=== PATIENT | male | born 1950 | race Caucasian/White ===

== ENCOUNTER → 2019-03-15 09:50 | Outpatient (CLI) | payer MEDICARE, SELFPAY ==
--- NOTE | 2019-03-15 10:03 | RAD_ITS ---
STUDY: X-RAY - LEFT HAND REASON FOR EXAM: Male, 68 years old. Pain. TECHNIQUE: 3 view(s) of the hand. COMPARISON: None. FINDINGS: Normal radiocarpal articulation. Normal distal radioulnar joint. Normal visualized carpal bones. Normal carpal articulations Normal carpometacarpal articulation of the thumb. Normal second through fifth carpometacarpal joints. Normal metacarpi. Normal metacarpophalangeal joint of the thumb. Normal interphalangeal joint of the thumb. Normal proximal and distal phalanges of the thumb. Normal metacarpophalangeal joints of the second through fifth fingers. There is diffuse articular joint space narrowing of the proximal and distal interphalangeal joints of the second through fifth fingers, but without erosive changes or periarticular soft tissue swelling. Normal phalanges of the second through fifth fingers. The soft tissue structures are unremarkable. RAD/Hand Min 3 Views IMPRESSION: Mild degenerative changes of the distal and proximal interphalangeal joints. Electronically Signed: Donald Madsen, at 10:10 EDT , Service support ,
--- NOTE | 2019-03-15 10:03 | RAD_ITS ---
STUDY: X-RAY - RIGHT HAND REASON FOR EXAM: Male, 68 years old. Right hand pain with history of arthritis. TECHNIQUE: 3 view(s) of the hand. COMPARISON: None. FINDINGS: Mild narrowing of the radiocarpal joint. Normal distal radioulnar joint. Normal visualized carpal bones. Widening of the scapholunate joint. Mild degenerative changes of the first carpometacarpal joint. Normal second through fifth carpometacarpal joints. Normal metacarpi. There is degenerative arthrosis of the metacarpophalangeal (MCP) joints. There is degenerative arthrosis of the interphalangeal joint of the thumb with articular joint space narrowing. Normal proximal and distal phalanges of the thumb. There is degenerative arthrosis of the metacarpophalangeal (MCP) joints. There is diffuse articular joint space narrowing of the proximal and distal interphalangeal joints of the second through fifth fingers, but without erosive changes or periarticular soft tissue swelling. Normal phalanges of the second through fifth fingers. Soft tissue swelling is more obvious in the second and third fingers RAD/Hand Min 3 Views IMPRESSION: Mild degenerative changes of the radiocarpal joint and an increased distance between the scaphoid and the lunate consistent with prior scapholunate ligament injury. Mild bony degenerative changes of the first carpometacarpal joint. Mild to moderate degenerative narrowing of the first through the fifth metacarpal phalangeal joints. Mild to moderate diffuse degenerative narrowing of the interphalangeal joints. Radiographically, soft tissue swelling is more obviously associated with the proximal interphalangeal joints of the second and third fingers. Electronically Signed: Jordyn Denny MD at 23:56 EDT , Service support ,
--- NOTE | 2019-03-15 10:14 | RAD_ITS ---
STUDY: X-RAY - PELVIS REASON FOR EXAM: Male, 68 years old. Pain. Arthritis. TECHNIQUE: One view of the pelvis was obtained. COMPARISON: None. FINDINGS: There is a non-specific bowel gas pattern. Normal visualized soft tissue structures. Normal bilateral iliac wings, sacroiliac joints and visualized sacrum. Normal visualized bilateral superior and inferior pubic rami. Normal pubic symphysis. Normal ischial tuberosities. Normal visualized right femoral head. Normal right acetabulum. Normal right hip joint. Normal visualized left femoral head. Normal left acetabulum. Normal left hip joint. RAD/Pelvis 1 or 2 Views IMPRESSION: Normal x-ray examination of the pelvis. Electronically Signed: Solomon Arauz MD at 22:46 EDT , Service support ,
[2019-03-15 13:05] LABS: Erythrocyte Sedimentation Rate 3 mm/hr (0-20)
[2019-03-15 13:14] LABS: Absolute Lymphocyte Count 0.54 X10^3/ul (0.83-4.51); Absolute Neutrophil Count 5.7 X10^3/uL (2.0-7.7); Basophil# 0.02 X10^3/uL; Basophil% 0.3 % (0-1); Eosinophil# 0.05 X10^3/uL; Eosinophils% 0.7 % (0-5); Hematocrit 46.5 % (40-54); Hemoglobin 15.2 g/dl (13.0-16.5); Lymphocyte # 0.54 X10^3/ul (4.0); Mean Corp Hgb Conc 32.7 g/gl (32-36); Mean Corpuscular Hgb 30.9 pg (27.0-32.0); Mean Corpuscular Volume 94.5 fL (80-94); Mean Platelet Vol. 10.6 fl (6.2-12.0); Monocyte# 0.44 X10^3/uL; Monocyte% 6.5 % (0-10); Neutrophil # 5.71 X10^3/uL (2.7-7.7); Neutrophil % 84.2 % (47-70); Platelet Count 220 K/mm3 (150-450); RBC Distribution Width CV 13.4 % (11.6-14.6); RBC Distribution Width SD 46.2 fl (35.1-43.9); Red Blood Count 4.92 M/mm3 (4.6-6.2); White Blood Count 6.8 K/mm3 (4.4-11.0)
[2019-03-15 13:21] LABS: Differential Indicated SCAN CRITERIA MET; POSITIVE COUNT NO; POSITIVE DIFFERENTIAL YES; POSITIVE MORPHOLOGY NO
[2019-03-15 14:09] LABS: ALB/GLOB Ratio 1.1 RATIO (0.9-2.4); AST(SGOT) 19 U/L (15-37); Alanine Aminotransfer ALT/SGPT 28 U/L (16-61); Albumin, Serum 3.9 g/dL (3.2-5.0); Alkaline Phosphatase 80 U/L (45-117); Anion Gap 5 (5-15); BUN 17 mg/dL (7-18); BUN/Creat Ratio 21.5 RATIO (10-20); CRP < 2.90 mg/L (0.0-3.0); Calcium,Total 9.3 mg/dL (8.5-10.1); Chloride 106 mmol/L (98-107); Creatinine, Serum 0.79 mg/dL (0.70-1.30); EST Glomerular Filtration Rate 104 mL/min (>60); Est Glom Filt Rate - Afr Amer 126 mL/min (>60); Globulin 3.6 g/dL (2.2-4.2); Glucose 101 mg/dL (74-106); Potassium 4.2 mmol/L (3.5-5.1); Protein, Total 7.5 g/dL (6.4-8.2); Rheumatoid Factor < 10.0 IU/mL (<15); Sodium Level 141 mmol/L (136-145)
[2019-03-16 12:07] LABS: SJOGREN'S Anti-SS-A test 1.8 AI (0.0-0.9); SJOGREN'S Anti-SS-B test < 0.2 AI (0.0-0.9)
[2019-03-18 13:43] LABS: ANTINUCLEAR ANTIBODIES DIRECT Positive (Negative)
[2019-03-20 14:07] LABS: HEPATITIS B SURFACE AG Negative (Negative)
[2019-03-21 11:32] LABS: CCP IgG Antibodies 7 units (0-19); HLA B27 Positive (.); Hep B Surface Antibodies Non Reactive (.); Hep C Antibodies <0.1 s/co ratio (0.0-0.9); Hepatitis B Core AB IgM Negative (Negative)
== END ==
PROVIDERS: Referring Provider Internal Medicine Rheumatology; Visit Provider Internal Medicine Rheumatology
DX: M06.4 Inflammatory polyarthropathy (principal); M47.897 Other spondylosis, lumbosacral region; E03.9 Hypothyroidism, unspecified
CPT/HCPCS: 36415; 72170; 73130; 80053; 81374; 85025; 85652; 86038; 86140; 86200; 86235; 86431; 86705; 86706; 86803; 87340

== ENCOUNTER → 2019-06-01 11:41 | Outpatient (CLI) | payer MEDICARE, SELFPAY ==
[2019-06-01 14:21] LABS: Absolute Neutrophil Count 5.1 X10^3/uL (2.0-7.7); Basophil# 0.03 X10^3/uL; Basophil% 0.5 % (0-1); Eosinophil# 0.02 X10^3/uL; Eosinophils% 0.3 % (0-5); Hematocrit 44.1 % (40-54); Lymphocyte % 9.6 % (19-41); Mean Corp Hgb Conc 31.7 g/dL (32-36); Mean Corpuscular Hgb 30.4 pg (27.0-32.0); Mean Corpuscular Volume 95.7 fL (80-94); Mean Platelet Vol. 10.9 fl (6.2-12.0); Monocyte# 0.43 X10^3/uL; Monocyte% 6.9 % (0-10); NRBC Flagged by Analyzer 0 % (0-5); Neutrophil % 82.1 % (47-70); POSITIVE DIFFERENTIAL YES; Platelet Count 198 K/mm3 (150-450); RBC Distribution Width CV 14.4 % (11.6-14.6); RBC Distribution Width SD 49.6 fl (35.1-43.9); Red Blood Count 4.61 M/mm3 (4.6-6.2); White Blood Count 6.2 K/mm3 (4.4-11.0)
[2019-06-01 14:25] LABS: Differential Indicated SCAN CRITERIA MET
[2019-06-01 14:39] LABS: AST(SGOT) 22 U/L (15-37); Alanine Aminotransfer ALT/SGPT 32 U/L (16-61); Albumin, Serum 3.5 g/dL (3.2-5.0); Alkaline Phosphatase 73 U/L (45-117); Anion Gap 4 (5-15); BUN 14 mg/dL (7-18); BUN/Creat Ratio 17.8 RATIO (10-20); Calcium,Total 9.1 mg/dL (8.5-10.1); Chloride 108 mmol/L (98-107); Creatinine, Serum 0.79 mg/dL (0.70-1.30); EST Glomerular Filtration Rate 105 mL/min (>60); Est Glom Filt Rate - Afr Amer 127 mL/min (>60); Globulin 3.4 g/dL (2.2-4.2); Glucose 86 mg/dL (74-106); Potassium 4.2 mmol/L (3.5-5.1); Protein, Total 6.9 g/dL (6.4-8.2); Sodium Level 144 mmol/L (136-145)
== END ==
PROVIDERS: Referring Provider Internal Medicine Rheumatology; Visit Provider Internal Medicine Rheumatology
DX: M06.4 Inflammatory polyarthropathy (principal); M47.897 Other spondylosis, lumbosacral region; E03.9 Hypothyroidism, unspecified
CPT/HCPCS: 36415; 80053; 85025

== ENCOUNTER → 2020-02-29 11:54 | Outpatient (CLI) | payer MEDICARE, SELFPAY ==
[2020-02-29 15:21] LABS: Absolute Lymphocyte Count 0.88 X10^3/uL (0.83-4.51); Absolute Neutrophil Count 3.5 X10^3/uL (2.0-7.7); Basophil# 0.02 X10^3/uL; Basophil% 0.4 % (0-1); Eosinophil# 0.15 X10^3/uL; Hematocrit 44.1 % (40-54); Hemoglobin 13.9 g/dL (13.0-16.5); Lymphocyte # 0.88 X10^3/ul (4.0); Lymphocyte % 17.4 % (19-41); Mean Corp Hgb Conc 31.5 g/dL (32-36); Mean Corpuscular Hgb 30.5 pg (27.0-32.0); Mean Corpuscular Volume 96.9 fL (80-94); Mean Platelet Vol. 10.6 fl (6.2-12.0); Monocyte# 0.47 X10^3/uL; Monocyte% 9.3 % (0-10); NRBC Flagged by Analyzer 0 % (0-5); Neutrophil # 3.51 X10^3/uL (2.7-7.7); Neutrophil % 69.3 % (47-70); Platelet Count 215 K/mm3 (150-450); RBC Distribution Width CV 13.5 % (11.6-14.6); Red Blood Count 4.55 M/mm3 (4.6-6.2); White Blood Count 5.1 K/mm3 (4.4-11.0)
[2020-02-29 15:50] LABS: AST(SGOT) 20 U/L (15-37); Alanine Aminotransfer ALT/SGPT 30 U/L (16-61); Albumin, Serum 3.6 g/dL (3.2-5.0); Alkaline Phosphatase 101 U/L (45-117); Anion Gap 4 (5-15); BUN 18 mg/dL (7-18); BUN/Creat Ratio 24.1 RATIO (10-20); Calcium,Total 9.3 mg/dL (8.5-10.1); Chloride 106 mmol/L (98-107); Creatinine, Serum 0.75 mg/dL (0.70-1.30); EST Glomerular Filtration Rate 111 mL/min (>60); Est Glom Filt Rate - Afr Amer 134 mL/min (>60); Globulin 3.5 g/dL (2.2-4.2); Glucose 88 mg/dL (74-106); Potassium 4.5 mmol/L (3.5-5.1); Protein, Total 7.1 g/dL (6.4-8.2); Sodium Level 141 mmol/L (136-145)
== END ==
PROVIDERS: Referring Provider Internal Medicine Rheumatology; Visit Provider Internal Medicine Rheumatology
DX: M06.4 Inflammatory polyarthropathy (principal); M35.00 Sjogren syndrome, unspecified; M47.897 Other spondylosis, lumbosacral region; E03.9 Hypothyroidism, unspecified; Z79.899 Other long term (current) drug therapy
CPT/HCPCS: 36415; 80053; 85025

== ENCOUNTER → 2020-06-03 08:25 | Outpatient (CLI) | payer MEDICARE, SELFPAY ==
[2020-06-03 10:30] LABS: Absolute Lymphocyte Count 0.71 X10^3/uL (0.83-4.51); Absolute Neutrophil Count 3.7 X10^3/uL (2.0-7.7); Basophil# 0.03 X10^3/uL; Basophil% 0.6 % (0-1); Hematocrit 41.1 % (40-54); Hemoglobin 13.9 g/dL (13.0-16.5); Lymphocyte # 0.71 X10^3/ul (4.0); Lymphocyte % 13.9 % (19-41); Mean Corp Hgb Conc 33.8 g/dL (32-36); Mean Corpuscular Hgb 33.6 pg (27.0-32.0); Mean Corpuscular Volume 99.3 fL (80-94); Mean Platelet Vol. 10.5 fl (6.2-12.0); Monocyte% 9.8 % (0-10); NRBC Flagged by Analyzer 0 % (0-5); Neutrophil # 3.71 X10^3/uL (2.7-7.7); Neutrophil % 72.9 % (47-70); Platelet Count 173 K/mm3 (150-450); RBC Distribution Width CV 14.6 % (11.6-14.6); RBC Distribution Width SD 52.3 fl (35.1-43.9); Red Blood Count 4.14 M/mm3 (4.6-6.2); White Blood Count 5.1 K/mm3 (4.4-11.0)
[2020-06-03 10:53] LABS: AST(SGOT) 19 U/L (15-37); Alanine Aminotransfer ALT/SGPT 28 U/L (16-61); Albumin, Serum 3.6 g/dL (3.2-5.0); Alkaline Phosphatase 70 U/L (45-117); Anion Gap 3 (5-15); BUN 18 mg/dL (7-18); BUN/Creat Ratio 25.4 RATIO (10-20); Calcium,Total 9.3 mg/dL (8.5-10.1); Chloride 107 mmol/L (98-107); Creatinine, Serum 0.71 mg/dL (0.70-1.30); EST Glomerular Filtration Rate 117 mL/min (>60); Est Glom Filt Rate - Afr Amer 142 mL/min (>60); Globulin 3.5 g/dL (2.2-4.2); Glucose 101 mg/dL (74-106); Potassium 4.2 mmol/L (3.5-5.1); Protein, Total 7.1 g/dL (6.4-8.2); Sodium Level 142 mmol/L (136-145)
== END ==
PROVIDERS: Referring Provider Internal Medicine Rheumatology; Visit Provider Internal Medicine Rheumatology
DX: M06.4 Inflammatory polyarthropathy (principal); M35.00 Sjogren syndrome, unspecified; M47.897 Other spondylosis, lumbosacral region; E03.9 Hypothyroidism, unspecified; Z79.899 Other long term (current) drug therapy
CPT/HCPCS: 36415; 80053; 85025

== ENCOUNTER → 2020-06-11 08:19 | Outpatient (CLI) | payer MEDICARE, SELFPAY ==
[2020-06-11 10:28] LABS: Vitamin D,25 Hydroxy 63.3 ng/mL
[2020-06-11 10:39] LABS: Thyroid Stim Hormone (TSH) 0.54 uIU/mL (0.358-3.74)
== END ==
PROVIDERS: Referring Provider Internal Medicine Endocrinology, Diabetes & Metabolism; Visit Provider Internal Medicine Endocrinology, Diabetes & Metabolism
DX: E03.8 Other specified hypothyroidism (principal); E55.9 Vitamin D deficiency, unspecified
CPT/HCPCS: 36415; 82306; 84443

== ENCOUNTER → 2020-08-20 08:01 | Outpatient (CLI) | payer MEDICARE, SELFPAY ==
[2020-08-20 10:13] LABS: Absolute Lymphocyte Count 1.01 X10^3/uL (0.83-4.51); Absolute Neutrophil Count 3.3 X10^3/uL (2.0-7.7); Basophil# 0.03 X10^3/uL; Basophil% 0.6 % (0-1); Eosinophil# 0.16 X10^3/uL; Eosinophils% 3.1 % (0-5); Hematocrit 45.5 % (40-54); Hemoglobin 14.6 g/dL (13.0-16.5); Lymphocyte # 1.01 X10^3/ul (4.0); Lymphocyte % 19.7 % (19-41); Mean Corp Hgb Conc 32.1 g/dL (32-36); Mean Corpuscular Hgb 31.4 pg (27.0-32.0); Mean Corpuscular Volume 97.8 fL (80-94); Mean Platelet Vol. 10.5 fl (6.2-12.0); Monocyte# 0.55 X10^3/uL; Monocyte% 10.7 % (0-10); NRBC Flagged by Analyzer 0 % (0-5); Neutrophil # 3.33 X10^3/uL (2.7-7.7); Neutrophil % 64.9 % (47-70); Platelet Count 211 K/mm3 (150-450); RBC Distribution Width CV 13.3 % (11.6-14.6); RBC Distribution Width SD 47.4 fl (35.1-43.9); Red Blood Count 4.65 M/mm3 (4.6-6.2); White Blood Count 5.1 K/mm3 (4.4-11.0)
[2020-08-20 10:38] LABS: AST(SGOT) 35 U/L (15-37); Alanine Aminotransfer ALT/SGPT 50 U/L (16-61); Albumin, Serum 3.6 g/dL (3.2-5.0); Alkaline Phosphatase 92 U/L (45-117); Anion Gap 4 (5-15); BUN 16 mg/dL (7-18); BUN/Creat Ratio 24.1 RATIO (10-20); Chloride 105 mmol/L (98-107); Creatinine, Serum 0.66 mg/dL (0.70-1.30); EST Glomerular Filtration Rate 127 mL/min (>60); Est Glom Filt Rate - Afr Amer 153 mL/min (>60); Globulin 3.6 g/dL (2.2-4.2); Glucose 91 mg/dL (74-106); Protein, Total 7.2 g/dL (6.4-8.2); Sodium Level 141 mmol/L (136-145)
== END ==
PROVIDERS: Referring Provider Internal Medicine Rheumatology; Visit Provider Internal Medicine Rheumatology
DX: M06.4 Inflammatory polyarthropathy (principal); M35.00 Sjogren syndrome, unspecified; M47.897 Other spondylosis, lumbosacral region; E03.9 Hypothyroidism, unspecified; Z79.899 Other long term (current) drug therapy
CPT/HCPCS: 36415; 80053; 85025

== ENCOUNTER → 2020-11-18 15:54 | Outpatient (CLI) | payer MEDICARE, SELFPAY ==
[2020-11-18 18:13] LABS: Absolute Lymphocyte Count 1.05 X10^3/uL (0.83-4.51); Absolute Neutrophil Count 3.2 X10^3/uL (2.0-7.7); Basophil# 0.02 X10^3/uL; Basophil% 0.4 % (0-1); Eosinophil# 0.13 X10^3/uL; Eosinophils% 2.7 % (0-5); Hematocrit 44.3 % (40-54); Hemoglobin 14.1 g/dL (13.0-16.5); Lymphocyte # 1.05 X10^3/ul (4.0); Lymphocyte % 21.9 % (19-41); Mean Corp Hgb Conc 31.8 g/dL (32-36); Mean Corpuscular Hgb 30.3 pg (27.0-32.0); Mean Corpuscular Volume 95.3 fL (80-94); Mean Platelet Vol. 10.2 fl (6.2-12.0); Monocyte% 8.3 % (0-10); NRBC Flagged by Analyzer 0 % (0-5); Neutrophil # 3.17 X10^3/uL (2.7-7.7); Neutrophil % 66.1 % (47-70); Platelet Count 230 K/mm3 (150-450); RBC Distribution Width CV 13.7 % (11.6-14.6); RBC Distribution Width SD 47.6 fl (35.1-43.9); Red Blood Count 4.65 M/mm3 (4.6-6.2); White Blood Count 4.8 K/mm3 (4.4-11.0)
[2020-11-18 18:24] LABS: AST(SGOT) 24 U/L (15-37); Alanine Aminotransfer ALT/SGPT 38 U/L (16-61); Albumin, Serum 3.6 g/dL (3.2-5.0); Alkaline Phosphatase 83 U/L (45-117); Anion Gap 4 (5-15); BUN 22 mg/dL (7-18); BUN/Creat Ratio 27.1 RATIO (10-20); Calcium,Total 9.1 mg/dL (8.5-10.1); Chloride 106 mmol/L (98-107); Creatinine, Serum 0.81 mg/dL (0.70-1.30); EST Glomerular Filtration Rate 101 mL/min (>60); Est Glom Filt Rate - Afr Amer 122 mL/min (>60); Globulin 3.5 g/dL (2.2-4.2); Glucose 73 mg/dL (74-106); Potassium 3.8 mmol/L (3.5-5.1); Protein, Total 7.1 g/dL (6.4-8.2); Sodium Level 142 mmol/L (136-145)
[2020-11-18 18:33] LABS: PSA,Total - Annual Screen 0.28 ng/mL (0.00-4.00)
== END ==
PROVIDERS: Internal Medicine Rheumatology
DX: C61 Malignant neoplasm of prostate (principal); M06.4 Inflammatory polyarthropathy; M35.00 Sjogren syndrome, unspecified; M47.897 Other spondylosis, lumbosacral region; E03.9 Hypothyroidism, unspecified; Z79.899 Other long term (current) drug therapy
CPT/HCPCS: 36415; 80053; 84153; 85025; G0103

== ENCOUNTER → 2020-12-08 11:54 | Outpatient (CLI) | payer MEDICARE, SELFPAY ==
[2020-12-12 16:28] LABS: G6PD Quant Test 315 (127-427)
== END ==
PROVIDERS: Referring Provider Internal Medicine Rheumatology; Visit Provider Internal Medicine Rheumatology
DX: M06.4 Inflammatory polyarthropathy (principal); M35.00 Sjogren syndrome, unspecified; M47.897 Other spondylosis, lumbosacral region; E03.9 Hypothyroidism, unspecified; Z79.899 Other long term (current) drug therapy; Z85.46 Personal history of malignant neoplasm of prostate
CPT/HCPCS: 36415; 82955

== ENCOUNTER → 2020-12-30 11:44 | Outpatient (CLI) | payer MEDICARE, SELFPAY ==
[2020-12-30 15:30] LABS: ALB/GLOB Ratio 1.1 RATIO (0.9-2.4); AST(SGOT) 29 U/L (15-37); Alanine Aminotransfer ALT/SGPT 45 U/L (16-61); Albumin, Serum 3.7 g/dL (3.2-5.0); Alkaline Phosphatase 86 U/L (45-117); Anion Gap 5 (5-15); BUN 19 mg/dL (7-18); BUN/Creat Ratio 24.9 RATIO (10-20); Calcium,Total 9.3 mg/dL (8.5-10.1); Chloride 104 mmol/L (98-107); Creatinine, Serum 0.76 mg/dL (0.70-1.30); EST Glomerular Filtration Rate 108 mL/min (>60); Est Glom Filt Rate - Afr Amer 131 mL/min (>60); Globulin 3.5 g/dL (2.2-4.2); Glucose 88 mg/dL (74-106); Protein, Total 7.2 g/dL (6.4-8.2); Sodium Level 140 mmol/L (136-145); Thyroid Stim Hormone (TSH) 1.11 uIU/mL (0.358-3.74)
== END ==
PROVIDERS: Referring Provider Internal Medicine Endocrinology, Diabetes & Metabolism; Visit Provider Internal Medicine Endocrinology, Diabetes & Metabolism
DX: E03.8 Other specified hypothyroidism (principal)
CPT/HCPCS: 36415; 80053; 84443

== ENCOUNTER → 2021-03-11 12:50 | Outpatient (CLI) | payer MEDICARE, SELFPAY ==
[2021-03-11 14:55] LABS: Absolute Lymphocyte Count 0.77 X10^3/uL (0.83-4.51); Absolute Neutrophil Count 3.5 X10^3/uL (2.0-7.7); Basophil# 0.03 X10^3/uL; Basophil% 0.6 % (0-1); Eosinophils% 2.1 % (0-5); Hematocrit 41.9 % (40-54); Hemoglobin 13.5 g/dL (13.0-16.5); Lymphocyte # 0.77 X10^3/ul (0.83-4.51); Mean Corp Hgb Conc 32.2 g/dL (32-36); Mean Corpuscular Volume 96.1 fL (80-94); Mean Platelet Vol. 10.3 fl (6.2-12.0); Monocyte# 0.43 X10^3/uL; Monocyte% 8.9 % (0-10); NRBC Flagged by Analyzer 0 % (0-5); Neutrophil # 3.47 X10^3/uL (2.7-7.7); Platelet Count 204 K/mm3 (150-450); RBC Distribution Width CV 13.8 % (11.6-14.6); RBC Distribution Width SD 48.5 fl (35.1-43.9); Red Blood Count 4.36 M/mm3 (4.6-6.2); White Blood Count 4.8 K/mm3 (4.4-11.0)
[2021-03-11 15:37] LABS: ALB/GLOB Ratio 1.1 RATIO (0.9-2.4); AST(SGOT) 26 U/L (15-37); Alanine Aminotransfer ALT/SGPT 40 U/L (16-61); Albumin, Serum 3.8 g/dL (3.2-5.0); Alkaline Phosphatase 81 U/L (45-117); Anion Gap 5 (5-15); BUN 16 mg/dL (7-18); BUN/Creat Ratio 23.8 RATIO (10-20); Calcium,Total 9.3 mg/dL (8.5-10.1); Chloride 104 mmol/L (98-107); Creatinine, Serum 0.67 mg/dL (0.70-1.30); EST Glomerular Filtration Rate 125 mL/min (>60); Est Glom Filt Rate - Afr Amer 151 mL/min (>60); Globulin 3.4 g/dL (2.2-4.2); Glucose 87 mg/dL (74-106); Potassium 4.2 mmol/L (3.5-5.1); Protein, Total 7.2 g/dL (6.4-8.2); Sodium Level 140 mmol/L (136-145)
== END ==
PROVIDERS: Referring Provider Internal Medicine Rheumatology; Visit Provider Internal Medicine Rheumatology
DX: M06.4 Inflammatory polyarthropathy (principal); M35.00 Sjogren syndrome, unspecified; M47.897 Other spondylosis, lumbosacral region; E03.9 Hypothyroidism, unspecified; Z85.46 Personal history of malignant neoplasm of prostate; Z79.899 Other long term (current) drug therapy
CPT/HCPCS: 36415; 80053; 85025

== ENCOUNTER → 2021-05-20 13:15 | Outpatient (CLI) | payer MEDICARE, SELFPAY ==
[2021-05-20 15:17] LABS: Absolute Lymphocyte Count 0.88 X10^3/uL (0.83-4.51); Absolute Neutrophil Count 4.6 X10^3/uL (2.0-7.7); Basophil# 0.02 X10^3/uL; Basophil% 0.3 % (0-1); Eosinophil# 0.11 X10^3/uL; Eosinophils% 1.8 % (0-5); Hematocrit 43.5 % (40-54); Hemoglobin 14.2 g/dL (13.0-16.5); Lymphocyte # 0.88 X10^3/ul (0.83-4.51); Lymphocyte % 14.2 % (19-41); Mean Corp Hgb Conc 32.6 g/dL (32-36); Mean Corpuscular Hgb 31.7 pg (27.0-32.0); Mean Corpuscular Volume 97.1 fL (80-94); Mean Platelet Vol. 10.6 fl (6.2-12.0); Monocyte# 0.51 X10^3/uL; Monocyte% 8.3 % (0-10); NRBC Flagged by Analyzer 0 % (0-5); Neutrophil # 4.62 X10^3/uL (2.7-7.7); Neutrophil % 74.8 % (47-70); Platelet Count 217 K/mm3 (150-450); RBC Distribution Width CV 13.6 % (11.6-14.6); RBC Distribution Width SD 48.3 fl (35.1-43.9); Red Blood Count 4.48 M/mm3 (4.6-6.2); White Blood Count 6.2 K/mm3 (4.4-11.0)
[2021-05-20 15:46] LABS: ALB/GLOB Ratio 1.1 RATIO (0.9-2.4); AST(SGOT) 26 U/L (15-37); Alanine Aminotransfer ALT/SGPT 41 U/L (16-61); Albumin, Serum 3.7 g/dL (3.2-5.0); Alkaline Phosphatase 86 U/L (45-117); Anion Gap 5 (5-15); BUN 17 mg/dL (7-18); BUN/Creat Ratio 22.2 RATIO (10-20); Calcium,Total 9.1 mg/dL (8.5-10.1); Chloride 107 mmol/L (98-107); Creatinine, Serum 0.77 mg/dL (0.70-1.30); EST Glomerular Filtration Rate 107 mL/min (>60); Est Glom Filt Rate - Afr Amer 130 mL/min (>60); Globulin 3.4 g/dL (2.2-4.2); Glucose 97 mg/dL (74-106); Potassium 4.1 mmol/L (3.5-5.1); Protein, Total 7.1 g/dL (6.4-8.2); Sodium Level 141 mmol/L (136-145)
== END ==
PROVIDERS: Referring Provider Internal Medicine Rheumatology; Visit Provider Internal Medicine Rheumatology
DX: M06.4 Inflammatory polyarthropathy (principal); M35.00 Sjogren syndrome, unspecified; M47.897 Other spondylosis, lumbosacral region; E03.9 Hypothyroidism, unspecified; Z85.46 Personal history of malignant neoplasm of prostate; Z79.899 Other long term (current) drug therapy
CPT/HCPCS: 36415; 80053; 85025

== ENCOUNTER → 2021-06-30 09:08 | Outpatient (CLI) | payer MEDICARE, SELFPAY ==
[2021-06-30 11:04] LABS: Vitamin D,25 Hydroxy 55.2 ng/mL
[2021-06-30 11:32] LABS: ALB/GLOB Ratio 0.9 RATIO (0.9-2.4); AST(SGOT) 20 U/L (15-37); Alanine Aminotransfer ALT/SGPT 29 U/L (16-61); Albumin, Serum 3.6 g/dL (3.2-5.0); Alkaline Phosphatase 78 U/L (45-117); Anion Gap 5 (5-15); BUN 22 mg/dL (7-18); BUN/Creat Ratio 29.5 RATIO (10-20); Calcium,Total 9.4 mg/dL (8.5-10.1); Chloride 107 mmol/L (98-107); Creatinine, Serum 0.75 mg/dL (0.70-1.30); EST Glomerular Filtration Rate 111 mL/min (>60); Est Glom Filt Rate - Afr Amer 134 mL/min (>60); Globulin 3.8 g/dL (2.2-4.2); Glucose 90 mg/dL (74-106); Potassium 4.5 mmol/L (3.5-5.1); Protein, Total 7.4 g/dL (6.4-8.2); Sodium Level 141 mmol/L (136-145); Thyroid Stim Hormone (TSH) 0.78 uIU/mL (0.358-3.74)
== END ==
PROVIDERS: Referring Provider Internal Medicine Endocrinology, Diabetes & Metabolism; Visit Provider Internal Medicine Endocrinology, Diabetes & Metabolism
DX: E03.8 Other specified hypothyroidism (principal); E55.9 Vitamin D deficiency, unspecified
CPT/HCPCS: 36415; 80053; 82306; 84443

== ENCOUNTER → 2021-08-03 12:17 | Outpatient (CLI) | payer MEDICARE, SELFPAY ==
[2021-08-03 15:29] LABS: Absolute Lymphocyte Count 0.63 X10^3/uL (0.83-4.51); Basophil# 0.03 X10^3/uL; Basophil% 0.5 % (0-1); Eosinophil# 0.07 X10^3/uL; Eosinophils% 1.1 % (0-5); Hematocrit 42.9 % (40-54); Lymphocyte # 0.63 X10^3/ul (0.83-4.51); Lymphocyte % 10.1 % (19-41); Mean Corp Hgb Conc 32.6 g/dL (32-36); Mean Corpuscular Hgb 31.6 pg (27.0-32.0); Mean Corpuscular Volume 96.8 fL (80-94); Mean Platelet Vol. 10.6 fl (6.2-12.0); Monocyte# 0.44 X10^3/uL; Monocyte% 7.1 % (0-10); NRBC Flagged by Analyzer 0 % (0-5); Neutrophil # 5.01 X10^3/uL (2.7-7.7); Neutrophil % 80.7 % (47-70); Platelet Count 192 K/mm3 (150-450); RBC Distribution Width CV 14.2 % (11.6-14.6); RBC Distribution Width SD 50.7 fl (35.1-43.9); Red Blood Count 4.43 M/mm3 (4.6-6.2); White Blood Count 6.2 K/mm3 (4.4-11.0)
[2021-08-03 15:57] LABS: AST(SGOT) 22 U/L (15-37); Alanine Aminotransfer ALT/SGPT 29 U/L (16-61); Albumin, Serum 3.6 g/dL (3.2-5.0); Alkaline Phosphatase 86 U/L (45-117); Anion Gap 8 (5-15); BUN 17 mg/dL (7-18); Calcium,Total 9.3 mg/dL (8.5-10.1); Chloride 105 mmol/L (98-107); Creatinine, Serum 0.85 mg/dL (0.70-1.30); EST Glomerular Filtration Rate 95 mL/min (>60); Est Glom Filt Rate - Afr Amer 115 mL/min (>60); Globulin 3.6 g/dL (2.2-4.2); Glucose 100 mg/dL (74-106); Potassium 3.9 mmol/L (3.5-5.1); Protein, Total 7.2 g/dL (6.4-8.2); Sodium Level 141 mmol/L (136-145)
== END ==
PROVIDERS: Referring Provider Internal Medicine Rheumatology; Visit Provider Internal Medicine Rheumatology
DX: M06.4 Inflammatory polyarthropathy (principal); M35.00 Sjogren syndrome, unspecified; M47.897 Other spondylosis, lumbosacral region; E03.9 Hypothyroidism, unspecified; Z79.899 Other long term (current) drug therapy; Z85.46 Personal history of malignant neoplasm of prostate
CPT/HCPCS: 36415; 80053; 85025

== ENCOUNTER 2021-11-04 08:35 | Outpatient (CLI) | payer MEDICARE, SELFPAY ==
[2021-11-04 10:07] LABS: Absolute Lymphocyte Count 0.87 X10^3/uL (0.83-4.51); Absolute Neutrophil Count 3.1 X10^3/uL (2.0-7.7); Basophil# 0.03 X10^3/uL; Basophil% 0.7 % (0-1); Eosinophil# 0.09 X10^3/uL; Hematocrit 46.8 % (40-54); Hemoglobin 15.1 g/dL (13.0-16.5); Lymphocyte # 0.87 X10^3/ul (0.83-4.51); Lymphocyte % 19.1 % (19-41); Mean Corp Hgb Conc 32.3 g/dL (32-36); Mean Corpuscular Volume 96.1 fL (80-94); Mean Platelet Vol. 10.4 fl (6.2-12.0); Monocyte# 0.42 X10^3/uL; Monocyte% 9.2 % (0-10); NRBC Flagged by Analyzer 0 % (0-5); Neutrophil # 3.12 X10^3/uL (2.7-7.7); Neutrophil % 68.3 % (47-70); Platelet Count 186 K/mm3 (150-450); RBC Distribution Width CV 13.4 % (11.6-14.6); RBC Distribution Width SD 47.7 fl (35.1-43.9); Red Blood Count 4.87 M/mm3 (4.6-6.2); White Blood Count 4.6 K/mm3 (4.4-11.0)
[2021-11-04 10:42] LABS: ALB/GLOB Ratio 1.1 RATIO (0.9-2.4); AST(SGOT) 33 U/L (15-37); Alanine Aminotransfer ALT/SGPT 48 U/L (16-61); Albumin, Serum 3.7 g/dL (3.2-5.0); Alkaline Phosphatase 88 U/L (45-117); Anion Gap 5 (5-15); BUN 14 mg/dL (7-18); BUN/Creat Ratio 19.1 RATIO (10-20); Calcium,Total 9.1 mg/dL (8.5-10.1); Chloride 108 mmol/L (98-107); Creatinine, Serum 0.73 mg/dL (0.70-1.30); EST Glomerular Filtration Rate 113 mL/min (>60); Est Glom Filt Rate - Afr Amer 137 mL/min (>60); Globulin 3.5 g/dL (2.2-4.2); Glucose 79 mg/dL (74-106); PSA,Total- Diagnostic 0.36 ng/mL (0.0-4.0); Potassium 4.2 mmol/L (3.5-5.1); Protein, Total 7.2 g/dL (6.4-8.2); Sodium Level 141 mmol/L (136-145)
== END 2021-11-04 23:59 | disposition short-term general hospital (02) ==
LOC: MTLAB 08:39
PROVIDERS: Referring Provider Internal Medicine Rheumatology; Visit Provider Internal Medicine Rheumatology
DX: M06.4 Inflammatory polyarthropathy (principal); M35.00 Sjogren syndrome, unspecified; N32.0 Bladder-neck obstruction; N28.1 Cyst of kidney, acquired; M47.897 Other spondylosis, lumbosacral region; E03.9 Hypothyroidism, unspecified; Z79.899 Other long term (current) drug therapy; Z85.46 Personal history of malignant neoplasm of prostate; Z87.440 Personal history of urinary (tract) infections; Z87.438 Personal history of other diseases of male genital organs
CPT/HCPCS: 36415; 80053; 84153; 85025

== ENCOUNTER 2021-12-30 08:50 | Outpatient (CLI) | payer MEDICARE, SELFPAY ==
[2021-12-30 11:20] LABS: ALB/GLOB Ratio 1.1 RATIO (0.9-2.4); AST(SGOT) 24 U/L (15-37); Alanine Aminotransfer ALT/SGPT 37 U/L (16-61); Albumin, Serum 3.8 g/dL (3.2-5.0); Alkaline Phosphatase 82 U/L (45-117); Anion Gap 5 (5-15); BUN 19 mg/dL (7-18); BUN/Creat Ratio 23.7 RATIO (10-20); Calcium,Total 9.8 mg/dL (8.5-10.1); Chloride 104 mmol/L (98-107); EST Glomerular Filtration Rate 102 mL/min (>60); Est Glom Filt Rate - Afr Amer 123 mL/min (>60); Globulin 3.5 g/dL (2.2-4.2); Glucose 99 mg/dL (74-106); Potassium 4.4 mmol/L (3.5-5.1); Protein, Total 7.3 g/dL (6.4-8.2); Sodium Level 139 mmol/L (136-145)
[2022-01-01 15:46] LABS: Vitamin D 1,25-Dihydroxy 58.7 pg/mL (19.9-79.3)
== END 2021-12-30 23:59 | disposition home or self-care (01) ==
LOC: MTLAB 08:51
PROVIDERS: Referring Provider Internal Medicine Endocrinology, Diabetes & Metabolism; Visit Provider Internal Medicine Endocrinology, Diabetes & Metabolism
DX: E03.8 Other specified hypothyroidism (principal); E04.2 Nontoxic multinodular goiter; E55.9 Vitamin D deficiency, unspecified
CPT/HCPCS: 36415; 80053; 82652; 84443

== ENCOUNTER 2022-01-18 11:05 | Outpatient (CLI) | payer MEDICARE, SELFPAY ==
[2022-01-18 12:16] LABS: Absolute Lymphocyte Count 0.68 X10^3/uL (0.83-4.51); Absolute Neutrophil Count 4.8 X10^3/uL (2.0-7.7); Basophil# 0.02 X10^3/uL; Basophil% 0.3 % (0-1); Eosinophil# 0.08 X10^3/uL; Eosinophils% 1.3 % (0-5); Hemoglobin 14.6 g/dL (13.0-16.5); Lymphocyte # 0.68 X10^3/ul (0.83-4.51); Lymphocyte % 11.4 % (19-41); Mean Corp Hgb Conc 33.2 g/dL (32-36); Mean Corpuscular Hgb 31.9 pg (27.0-32.0); Mean Corpuscular Volume 96.3 fL (80-94); Mean Platelet Vol. 10.3 fl (6.2-12.0); Monocyte# 0.41 X10^3/uL; Monocyte% 6.9 % (0-10); NRBC Flagged by Analyzer 0 % (0-5); Neutrophil # 4.75 X10^3/uL (2.7-7.7); Neutrophil % 79.8 % (47-70); Platelet Count 183 K/mm3 (150-450); RBC Distribution Width CV 14.1 % (11.6-14.6); RBC Distribution Width SD 49.7 fl (35.1-43.9); Red Blood Count 4.57 M/mm3 (4.6-6.2)
[2022-01-18 12:55] LABS: ALB/GLOB Ratio 1.1 RATIO (0.9-2.4); AST(SGOT) 22 U/L (15-37); Alanine Aminotransfer ALT/SGPT 28 U/L (16-61); Albumin, Serum 3.8 g/dL (3.2-5.0); Alkaline Phosphatase 75 U/L (45-117); Anion Gap 4 (5-15); BUN 21 mg/dL (7-18); Calcium,Total 9.4 mg/dL (8.5-10.1); Chloride 105 mmol/L (98-107); Creatinine, Serum 0.75 mg/dL (0.70-1.30); EST Glomerular Filtration Rate 110 mL/min (>60); Est Glom Filt Rate - Afr Amer 133 mL/min (>60); Globulin 3.4 g/dL (2.2-4.2); Glucose 92 mg/dL (74-106); Potassium 3.9 mmol/L (3.5-5.1); Protein, Total 7.2 g/dL (6.4-8.2); Sodium Level 141 mmol/L (136-145)
== END 2022-01-18 23:59 | disposition home or self-care (01) ==
PROVIDERS: Referring Provider Internal Medicine Rheumatology; Visit Provider Internal Medicine Rheumatology
DX: M06.4 Inflammatory polyarthropathy (principal); M35.00 Sjogren syndrome, unspecified; M47.897 Other spondylosis, lumbosacral region; E03.9 Hypothyroidism, unspecified; Z79.899 Other long term (current) drug therapy; Z85.46 Personal history of malignant neoplasm of prostate
CPT/HCPCS: 36415; 80053; 85025

== ENCOUNTER → 2022-04-01 | Outpatient (CLI) | payer MEDICARE, SELFPAY ==
[2022-04-01 10:42] LABS: ALB/GLOB Ratio 0.8 RATIO (0.9-2.4); AST(SGOT) 21 U/L (15-37); Alanine Aminotransfer ALT/SGPT 23 U/L (16-61); Albumin, Serum 3.2 g/dL (3.2-5.0); Alkaline Phosphatase 87 U/L (45-117); Anion Gap 4 (5-15); BUN 18 mg/dL (7-18); Calcium,Total 9.6 mg/dL (8.5-10.1); Chloride 105 mmol/L (98-107); Cholesterol 196 mg/dL (200); Creatinine, Serum 0.67 mg/dL (0.70-1.30); EST Glomerular Filtration Rate 126 mL/min (>60); Est Glom Filt Rate - Afr Amer 152 mL/min (>60); Globulin 4.1 g/dL (2.2-4.2); Glucose 103 mg/dL (74-106); High Density Lipoprotein 34 mg/dL; Potassium 3.8 mmol/L (3.5-5.1); Protein, Total 7.3 g/dL (6.4-8.2); Sodium Level 137 mmol/L (136-145); Thyroid Stim Hormone (TSH) 0.29 uIU/mL (0.358-3.74); Triglycerides 117 mg/dL; Very Low Density Lipoprotein 23 mg/dL (5-40)
== END | disposition home or self-care (01) ==
PROVIDERS: Referring Provider Internal Medicine Endocrinology, Diabetes & Metabolism; Visit Provider Internal Medicine Endocrinology, Diabetes & Metabolism
DX: E03.8 Other specified hypothyroidism (principal); E78.2 Mixed hyperlipidemia; E04.2 Nontoxic multinodular goiter
CPT/HCPCS: 36415; 80053; 80061; 84443

== ENCOUNTER → 2022-04-20 | Outpatient (CLI) | payer MEDICARE, SELFPAY ==
[2022-04-20 12:17] LABS: Absolute Lymphocyte Count 0.55 X10^3/uL (0.83-4.51); Absolute Neutrophil Count 2.9 X10^3/uL (2.0-7.7); Basophil# 0.02 X10^3/uL; Basophil% 0.5 % (0-1); Eosinophil# 0.07 X10^3/uL; Eosinophils% 1.8 % (0-5); Hematocrit 42.4 % (40-54); Hemoglobin 13.1 g/dL (13.0-16.5); Lymphocyte # 0.55 X10^3/ul (0.83-4.51); Lymphocyte % 14.1 % (19-41); Mean Corp Hgb Conc 30.9 g/dL (32-36); Mean Corpuscular Volume 97.2 fL (80-94); Mean Platelet Vol. 10.9 fl (6.2-12.0); Monocyte# 0.38 X10^3/uL; Monocyte% 9.8 % (0-10); NRBC Flagged by Analyzer 0 % (0-5); Neutrophil # 2.86 X10^3/uL (2.7-7.7); Neutrophil % 73.5 % (47-70); POSITIVE DIFFERENTIAL YES; Platelet Count 188 K/mm3 (150-450); RBC Distribution Width CV 14.2 % (11.6-14.6); RBC Distribution Width SD 50.9 fl (35.1-43.9); Red Blood Count 4.36 M/mm3 (4.6-6.2); White Blood Count 3.9 K/mm3 (4.4-11.0)
[2022-04-20 13:09] LABS: AST(SGOT) 24 U/L (15-37); Alanine Aminotransfer ALT/SGPT 30 U/L (16-61); Albumin, Serum 3.6 g/dL (3.2-5.0); Alkaline Phosphatase 83 U/L (45-117); Anion Gap 7 (5-15); BUN 24 mg/dL (7-18); BUN/Creat Ratio 31.7 RATIO (10-20); Calcium,Total 9.9 mg/dL (8.5-10.1); Chloride 105 mmol/L (98-107); Creatinine, Serum 0.76 mg/dL (0.70-1.30); EST Glomerular Filtration Rate 108 mL/min (>60); Est Glom Filt Rate - Afr Amer 131 mL/min (>60); Globulin 3.6 g/dL (2.2-4.2); Glucose 84 mg/dL (74-106); Potassium 4.1 mmol/L (3.5-5.1); Protein, Total 7.2 g/dL (6.4-8.2); Sodium Level 139 mmol/L (136-145)
[2022-04-20 13:10] LABS: Differential Indicated SCAN CRITERIA MET
[2022-04-20 13:11] LABS: Differential Comment SCANNED
[2022-04-21 12:41] LABS: Pathologist Review Reviewed
== END | disposition home or self-care (01) ==
PROVIDERS: Referring Provider Internal Medicine Rheumatology; Visit Provider Internal Medicine Rheumatology
DX: M06.4 Inflammatory polyarthropathy (principal); M35.00 Sjogren syndrome, unspecified; M47.897 Other spondylosis, lumbosacral region; E03.9 Hypothyroidism, unspecified; Z85.46 Personal history of malignant neoplasm of prostate; Z79.899 Other long term (current) drug therapy
CPT/HCPCS: 36415; 80053; 85025

== ENCOUNTER → 2022-07-13 | Outpatient (CLI) | payer MEDICARE, SELFPAY ==
[2022-07-13 10:03] LABS: Absolute Neutrophil Count 4.9 X10^3/uL (2.0-7.7); Basophil# 0.03 X10^3/uL; Basophil% 0.5 % (0-1); Eosinophil# 0.07 X10^3/uL; Eosinophils% 1.1 % (0-5); Hematocrit 48.4 % (40-54); Hemoglobin 15.5 g/dL (13.0-16.5); Mean Corpuscular Hgb 30.4 pg (27.0-32.0); Mean Corpuscular Volume 94.9 fL (80-94); Mean Platelet Vol. 10.7 fl (6.2-12.0); Monocyte% 7.8 % (0-10); NRBC Flagged by Analyzer 0 % (0-5); Neutrophil # 4.88 X10^3/uL (2.7-7.7); Neutrophil % 75.5 % (47-70); Platelet Count 217 K/mm3 (150-450); RBC Distribution Width CV 15.5 % (11.6-14.6); RBC Distribution Width SD 53.8 fl (35.1-43.9); White Blood Count 6.5 K/mm3 (4.4-11.0)
[2022-07-13 11:23] LABS: AST(SGOT) 19 U/L (15-37); Alanine Aminotransfer ALT/SGPT 35 U/L (16-61); Albumin, Serum 3.8 g/dL (3.2-5.0); Alkaline Phosphatase 89 U/L (45-117); Anion Gap 5 (5-15); BUN 24 mg/dL (7-18); BUN/Creat Ratio 28.7 RATIO (10-20); Calcium,Total 9.9 mg/dL (8.5-10.1); Chloride 106 mmol/L (98-107); Creatinine, Serum 0.84 mg/dL (0.70-1.30); EST Glomerular Filtration Rate 97 mL/min (>60); Est Glom Filt Rate - Afr Amer 117 mL/min (>60); Glucose 99 mg/dL (74-106); Potassium 4.4 mmol/L (3.5-5.1); Protein, Total 7.8 g/dL (6.4-8.2); Sodium Level 140 mmol/L (136-145)
[2022-07-13 11:24] LABS: PSA,Total- Diagnostic 0.41 ng/mL (0.0-4.0)
== END | disposition home or self-care (01) ==
LOC: MTLAB 08:53
PROVIDERS: Referring Provider Internal Medicine Rheumatology; Visit Provider Internal Medicine Rheumatology
DX: M06.4 Inflammatory polyarthropathy (principal); M35.00 Sjogren syndrome, unspecified; M47.897 Other spondylosis, lumbosacral region; E03.9 Hypothyroidism, unspecified; Z79.899 Other long term (current) drug therapy; Z85.46 Personal history of malignant neoplasm of prostate
CPT/HCPCS: 36415; 80053; 84153; 85025

== ENCOUNTER → 2022-08-20 | Outpatient (CLI) | payer MEDICARE, SELFPAY ==
[2022-08-20 10:16] LABS: Vitamin D,25 Hydroxy 49.5 ng/mL
[2022-08-20 10:40] LABS: ALB/GLOB Ratio 0.9 RATIO (0.9-2.4); AST(SGOT) 26 U/L (15-37); Alanine Aminotransfer ALT/SGPT 30 U/L (16-61); Albumin, Serum 3.6 g/dL (3.2-5.0); Alkaline Phosphatase 82 U/L (45-117); Anion Gap 5 (5-15); BUN 20 mg/dL (7-18); BUN/Creat Ratio 28.1 RATIO (10-20); Calcium,Total 9.3 mg/dL (8.5-10.1); Chloride 103 mmol/L (98-107); Cholesterol 209 mg/dL (200); Creatinine, Serum 0.71 mg/dL (0.70-1.30); EST Glomerular Filtration Rate 116 mL/min (>60); Est Glom Filt Rate - Afr Amer 141 mL/min (>60); Globulin 3.8 g/dL (2.2-4.2); Glucose 90 mg/dL (74-106); High Density Lipoprotein 47 mg/dL; Potassium 3.9 mmol/L (3.5-5.1); Protein, Total 7.4 g/dL (6.4-8.2); Sodium Level 138 mmol/L (136-145); Thyroid Stim Hormone (TSH) 1.43 uIU/mL (0.358-3.74); Triglycerides 70 mg/dL; Very Low Density Lipoprotein 14 mg/dL (5-40)
== END | disposition home or self-care (01) ==
LOC: MTLAB 07:14
PROVIDERS: Referring Provider Internal Medicine Endocrinology, Diabetes & Metabolism; Visit Provider Internal Medicine Endocrinology, Diabetes & Metabolism
DX: E03.8 Other specified hypothyroidism (principal); E78.2 Mixed hyperlipidemia; E55.9 Vitamin D deficiency, unspecified
CPT/HCPCS: 36415; 80053; 80061; 82306; 84443

== ENCOUNTER → 2022-10-21 | Outpatient (CLI) | payer MEDICARE, SELFPAY ==
[2022-10-21 17:33] LABS: Absolute Lymphocyte Count 1.16 X10^3/uL (0.83-4.51); Basophil# 0.03 X10^3/uL; Basophil% 0.5 % (0-1); Eosinophil# 0.09 X10^3/uL; Eosinophils% 1.6 % (0-5); Hematocrit 45.2 % (40-54); Hemoglobin 14.6 g/dL (13.0-16.5); Lymphocyte # 1.16 X10^3/ul (0.83-4.51); Lymphocyte % 20.1 % (19-41); Mean Corp Hgb Conc 32.3 g/dL (32-36); Mean Corpuscular Hgb 31.1 pg (27.0-32.0); Mean Corpuscular Volume 96.4 fL (80-94); Mean Platelet Vol. 10.8 fl (6.2-12.0); Monocyte# 0.49 X10^3/uL; Monocyte% 8.5 % (0-10); NRBC Flagged by Analyzer 0 % (0-5); Neutrophil # 3.95 X10^3/uL (2.7-7.7); Neutrophil % 68.4 % (47-70); Platelet Count 187 K/mm3 (150-450); RBC Distribution Width CV 13.7 % (11.6-14.6); RBC Distribution Width SD 48.2 fl (35.1-43.9); Red Blood Count 4.69 M/mm3 (4.6-6.2); White Blood Count 5.8 K/mm3 (4.4-11.0)
[2022-10-21 17:59] LABS: ALB/GLOB Ratio 1.1 RATIO (0.9-2.4); AST(SGOT) 32 U/L (15-37); Alanine Aminotransfer ALT/SGPT 49 U/L (16-61); Albumin, Serum 3.7 g/dL (3.2-5.0); Alkaline Phosphatase 85 U/L (45-117); Anion Gap 4 (5-15); BUN 23 mg/dL (7-18); BUN/Creat Ratio 31.2 RATIO (10-20); Calcium,Total 9.6 mg/dL (8.5-10.1); Chloride 105 mmol/L (98-107); Creatinine, Serum 0.74 mg/dL (0.70-1.30); EST Glomerular Filtration Rate 112 mL/min (>60); Est Glom Filt Rate - Afr Amer 135 mL/min (>60); Globulin 3.5 g/dL (2.2-4.2); Glucose 82 mg/dL (74-106); Potassium 4.5 mmol/L (3.5-5.1); Protein, Total 7.2 g/dL (6.4-8.2); Sodium Level 140 mmol/L (136-145)
== END | disposition home or self-care (01) ==
PROVIDERS: Referring Provider Internal Medicine Rheumatology; Visit Provider Internal Medicine Rheumatology
DX: Z79.899 Other long term (current) drug therapy (principal); M06.4 Inflammatory polyarthropathy; M35.00 Sjogren syndrome, unspecified; M47.897 Other spondylosis, lumbosacral region; E03.9 Hypothyroidism, unspecified; Z85.46 Personal history of malignant neoplasm of prostate
CPT/HCPCS: 36415; 80053; 85025

== ENCOUNTER → 2023-01-21 | Outpatient (CLI) | payer MEDICARE, SELFPAY ==
[2023-01-21 10:25] LABS: Absolute Lymphocyte Count 0.96 X10^3/uL (0.83-4.51); Absolute Neutrophil Count 2.9 X10^3/uL (2.0-7.7); Basophil# 0.02 X10^3/uL; Basophil% 0.5 % (0-1); Eosinophil# 0.12 X10^3/uL; Eosinophils% 2.7 % (0-5); Hematocrit 43.3 % (40-54); Hemoglobin 13.9 g/dL (13.0-16.5); Lymphocyte # 0.96 X10^3/ul (0.83-4.51); Lymphocyte % 21.7 % (19-41); Mean Corp Hgb Conc 32.1 g/dL (32-36); Mean Corpuscular Hgb 30.9 pg (27.0-32.0); Mean Corpuscular Volume 96.2 fL (80-94); Mean Platelet Vol. 10.7 fl (6.2-12.0); NRBC Flagged by Analyzer 0 % (0-5); Neutrophil % 65.6 % (47-70); Platelet Count 185 K/mm3 (150-450); RBC Distribution Width CV 14.8 % (11.6-14.6); RBC Distribution Width SD 51.8 fl (35.1-43.9); White Blood Count 4.4 K/mm3 (4.4-11.0)
[2023-01-21 11:31] LABS: ALB/GLOB Ratio 0.9 RATIO (0.9-2.4); AST(SGOT) 24 U/L (15-37); Alanine Aminotransfer ALT/SGPT 32 U/L (16-61); Albumin, Serum 3.5 g/dL (3.2-5.0); Alkaline Phosphatase 83 U/L (45-117); Anion Gap 3 (5-15); BUN 20 mg/dL (7-18); BUN/Creat Ratio 26.4 RATIO (10-20); Calcium,Total 9.5 mg/dL (8.5-10.1); Chloride 108 mmol/L (98-107); Creatinine, Serum 0.76 mg/dL (0.70-1.30); EST Glomerular Filtration Rate 108 mL/min (>60); Est Glom Filt Rate - Afr Amer 131 mL/min (>60); Globulin 3.8 g/dL (2.2-4.2); Glucose 109 mg/dL (74-106); Potassium 4.2 mmol/L (3.5-5.1); Protein, Total 7.3 g/dL (6.4-8.2); Sodium Level 137 mmol/L (136-145)
== END | disposition home or self-care (01) ==
PROVIDERS: Referring Provider Internal Medicine Rheumatology; Visit Provider Internal Medicine Rheumatology
DX: M06.4 Inflammatory polyarthropathy (principal); M35.00 Sjogren syndrome, unspecified; M47.897 Other spondylosis, lumbosacral region; E03.9 Hypothyroidism, unspecified; Z85.46 Personal history of malignant neoplasm of prostate; Z79.899 Other long term (current) drug therapy
CPT/HCPCS: 36415; 80053; 85025

== ENCOUNTER → 2023-02-02 | Outpatient (CLI) | payer MEDICARE, SELFPAY ==
[2023-02-02 11:18] LABS: ALB/GLOB Ratio 0.9 RATIO (0.9-2.4); AST(SGOT) 36 U/L (15-37); Alanine Aminotransfer ALT/SGPT 53 U/L (16-61); Albumin, Serum 3.7 g/dL (3.2-5.0); Alkaline Phosphatase 91 U/L (45-117); Anion Gap 4 (5-15); BUN 18 mg/dL (7-18); BUN/Creat Ratio 24.1 RATIO (10-20); Calcium,Total 9.5 mg/dL (8.5-10.1); Chloride 105 mmol/L (98-107); Cholesterol 226 mg/dL (200); Creatinine, Serum 0.75 mg/dL (0.70-1.30); EST Glomerular Filtration Rate 110 mL/min (>60); Est Glom Filt Rate - Afr Amer 133 mL/min (>60); Globulin 4.1 g/dL (2.2-4.2); Glucose 97 mg/dL (74-106); High Density Lipoprotein 40 mg/dL; Protein, Total 7.8 g/dL (6.4-8.2); Sodium Level 137 mmol/L (136-145); Thyroid Stim Hormone (TSH) 1.16 uIU/mL (0.358-3.74); Triglycerides 109 mg/dL; Very Low Density Lipoprotein 22 mg/dL (5-40)
== END | disposition home or self-care (01) ==
LOC: MTLAB 07:47
PROVIDERS: Referring Provider Nurse Practitioner Adult Health; Visit Provider Nurse Practitioner Adult Health
DX: E03.8 Other specified hypothyroidism (principal); E78.2 Mixed hyperlipidemia
CPT/HCPCS: 36415; 80053; 80061; 84443

== ENCOUNTER → 2023-04-11 | Outpatient (CLI) | payer MEDICARE, SELFPAY ==
[2023-04-11 12:40] LABS: Absolute Lymphocyte Count 0.76 X10^3/uL (0.83-4.51); Absolute Neutrophil Count 4.3 X10^3/uL (2.0-7.7); Basophil# 0.02 X10^3/uL; Basophil% 0.4 % (0-1); Eosinophil# 0.09 X10^3/uL; Eosinophils% 1.6 % (0-5); Hematocrit 46.6 % (40-54); Lymphocyte # 0.76 X10^3/ul (0.83-4.51); Lymphocyte % 13.7 % (19-41); Mean Corp Hgb Conc 32.2 g/dL (32-36); Mean Corpuscular Hgb 31.2 pg (27.0-32.0); Mean Corpuscular Volume 96.9 fL (80-94); Mean Platelet Vol. 10.8 fl (6.2-12.0); Monocyte% 7.2 % (0-10); NRBC Flagged by Analyzer 0 % (0-5); Neutrophil # 4.27 X10^3/uL (2.7-7.7); Neutrophil % 76.7 % (47-70); Platelet Count 189 K/mm3 (150-450); RBC Distribution Width CV 13.8 % (11.6-14.6); RBC Distribution Width SD 48.6 fl (35.1-43.9); Red Blood Count 4.81 M/mm3 (4.6-6.2); White Blood Count 5.6 K/mm3 (4.4-11.0)
[2023-04-11 12:54] LABS: ALB/GLOB Ratio 0.9 RATIO (0.9-2.4); AST(SGOT) 28 U/L (15-37); Alanine Aminotransfer ALT/SGPT 34 U/L (16-61); Albumin, Serum 3.7 g/dL (3.2-5.0); Alkaline Phosphatase 85 U/L (45-117); Anion Gap 3 (5-15); BUN 18 mg/dL (7-18); Calcium,Total 9.4 mg/dL (8.5-10.1); Chloride 108 mmol/L (98-107); Creatinine, Serum 0.78 mg/dL (0.70-1.30); EST Glomerular Filtration Rate 104 mL/min (>60); Est Glom Filt Rate - Afr Amer 126 mL/min (>60); Glucose 76 mg/dL (74-106); Potassium 3.9 mmol/L (3.5-5.1); Protein, Total 7.7 g/dL (6.4-8.2); Sodium Level 140 mmol/L (136-145)
== END | disposition home or self-care (01) ==
PROVIDERS: Referring Provider Internal Medicine Rheumatology; Visit Provider Internal Medicine Rheumatology
DX: M06.4 Inflammatory polyarthropathy (principal); Z79.899 Other long term (current) drug therapy
CPT/HCPCS: 36415; 80053; 85025

== ENCOUNTER → 2023-06-02 | Outpatient (CLI) | payer MEDICARE, SELFPAY ==
[2023-06-02 11:00] LABS: ALB/GLOB Ratio 0.9 RATIO (0.9-2.4); AST(SGOT) 23 U/L (15-37); Alanine Aminotransfer ALT/SGPT 28 U/L (16-61); Albumin, Serum 3.6 g/dL (3.2-5.0); Alkaline Phosphatase 81 U/L (45-117); Anion Gap 4 (5-15); BUN 17 mg/dL (7-18); BUN/Creat Ratio 22.7 RATIO (10-20); Calcium,Total 9.2 mg/dL (8.5-10.1); Chloride 107 mmol/L (98-107); Cholesterol 181 mg/dL (200); Creatinine, Serum 0.75 mg/dL (0.70-1.30); EST Glomerular Filtration Rate 109 mL/min (>60); Est Glom Filt Rate - Afr Amer 132 mL/min (>60); Globulin 3.9 g/dL (2.2-4.2); Glucose 94 mg/dL (74-106); High Density Lipoprotein 44 mg/dL; Potassium 3.8 mmol/L (3.5-5.1); Protein, Total 7.5 g/dL (6.4-8.2); Sodium Level 141 mmol/L (136-145); Thyroid Stim Hormone (TSH) 1.53 uIU/mL (0.358-3.74); Triglycerides 70 mg/dL; Very Low Density Lipoprotein 14 mg/dL (5-40)
== END | disposition home or self-care (01) ==
LOC: MTLAB 07:54
PROVIDERS: Referring Provider Internal Medicine Endocrinology, Diabetes & Metabolism; Visit Provider Internal Medicine Endocrinology, Diabetes & Metabolism
DX: E03.8 Other specified hypothyroidism (principal); E78.2 Mixed hyperlipidemia; E04.2 Nontoxic multinodular goiter
CPT/HCPCS: 36415; 80053; 80061; 84443

== ENCOUNTER → 2023-06-14 | Outpatient (CLI) | payer MEDICARE, SELFPAY ==
[2023-06-14 12:26] LABS: Absolute Lymphocyte Count 0.67 X10^3/uL (0.83-4.51); Absolute Neutrophil Count 4.1 X10^3/uL (2.0-7.7); Basophil# 0.02 X10^3/uL; Basophil% 0.4 % (0-1); Eosinophil# 0.14 X10^3/uL; Eosinophils% 2.5 % (0-5); Hematocrit 41.7 % (40-54); Hemoglobin 13.4 g/dL (13.0-16.5); Lymphocyte # 0.67 X10^3/ul (0.83-4.51); Lymphocyte % 12.2 % (19-41); Mean Corp Hgb Conc 32.1 g/dL (32-36); Mean Corpuscular Hgb 31.9 pg (27.0-32.0); Mean Corpuscular Volume 99.3 fL (80-94); Mean Platelet Vol. 10.6 fl (6.2-12.0); Monocyte# 0.55 X10^3/uL; NRBC Flagged by Analyzer 0 % (0-5); Neutrophil % 74.4 % (47-70); Platelet Count 162 K/mm3 (150-450); RBC Distribution Width CV 14.1 % (11.6-14.6); RBC Distribution Width SD 51.2 fl (35.1-43.9); White Blood Count 5.5 K/mm3 (4.4-11.0)
[2023-06-14 13:11] LABS: ALB/GLOB Ratio 0.8 RATIO (0.9-2.4); AST(SGOT) 23 U/L (15-37); Alanine Aminotransfer ALT/SGPT 25 U/L (16-61); Albumin, Serum 3.4 g/dL (3.2-5.0); Alkaline Phosphatase 87 U/L (45-117); Anion Gap 5 (5-15); BUN 14 mg/dL (7-18); BUN/Creat Ratio 20.1 RATIO (10-20); Calcium,Total 9.5 mg/dL (8.5-10.1); Chloride 105 mmol/L (98-107); EST Glomerular Filtration Rate 119 mL/min (>60); Est Glom Filt Rate - Afr Amer 144 mL/min (>60); Globulin 4.1 g/dL (2.2-4.2); Glucose 104 mg/dL (74-106); Potassium 4.1 mmol/L (3.5-5.1); Protein, Total 7.5 g/dL (6.4-8.2); Sodium Level 139 mmol/L (136-145)
== END | disposition home or self-care (01) ==
LOC: MTLAB 10:58
PROVIDERS: Referring Provider Internal Medicine Rheumatology; Visit Provider Internal Medicine Rheumatology
DX: M06.4 Inflammatory polyarthropathy (principal); M35.00 Sjogren syndrome, unspecified; Z79.899 Other long term (current) drug therapy
CPT/HCPCS: 36415; 80053; 85025

== ENCOUNTER → 2023-07-05 | Outpatient (CLI) | payer MEDICARE, SELFPAY ==
[2023-07-05 12:42] LABS: PSA,Total- Diagnostic 0.32 ng/mL (0.0-4.0)
== END | disposition home or self-care (01) ==
LOC: MTLAB 09:55
DX: C61 Malignant neoplasm of prostate (principal)
CPT/HCPCS: 36415; 84153

== ENCOUNTER → 2023-09-13 | Outpatient (CLI) | payer MEDICARE, SELFPAY ==
[2023-09-13 12:20] LABS: Absolute Lymphocyte Count 0.79 X10^3/uL (0.83-4.51); Absolute Neutrophil Count 3.9 X10^3/uL (2.0-7.7); Basophil# 0.04 X10^3/uL; Basophil% 0.8 % (0-1); Eosinophils% 1.9 % (0-5); Hematocrit 45.1 % (40-54); Hemoglobin 14.1 g/dL (13.0-16.5); Lymphocyte # 0.79 X10^3/ul (0.83-4.51); Lymphocyte % 14.9 % (19-41); Mean Corp Hgb Conc 31.3 g/dL (32-36); Mean Corpuscular Hgb 30.2 pg (27.0-32.0); Mean Corpuscular Volume 96.6 fL (80-94); Mean Platelet Vol. 10.7 fl (6.2-12.0); Monocyte# 0.43 X10^3/uL; Monocyte% 8.1 % (0-10); NRBC Flagged by Analyzer 0 % (0-5); Neutrophil # 3.92 X10^3/uL (2.7-7.7); Neutrophil % 73.9 % (47-70); Platelet Count 178 K/mm3 (150-450); RBC Distribution Width CV 14.3 % (11.6-14.6); RBC Distribution Width SD 50.6 fl (35.1-43.9); Red Blood Count 4.67 M/mm3 (4.6-6.2); White Blood Count 5.3 K/mm3 (4.4-11.0)
[2023-09-13 12:51] LABS: ALB/GLOB Ratio 0.8 RATIO (0.9-2.4); AST(SGOT) 23 U/L (15-37); Alanine Aminotransfer ALT/SGPT 26 U/L (16-61); Albumin, Serum 3.3 g/dL (3.2-5.0); Alkaline Phosphatase 88 U/L (45-117); Anion Gap 1 (5-15); BUN 19 mg/dL (7-18); Calcium,Total 9.7 mg/dL (8.5-10.1); Chloride 108 mmol/L (98-107); Creatinine, Serum 0.79 mg/dL (0.70-1.30); EST Glomerular Filtration Rate 102 mL/min (>60); Est Glom Filt Rate - Afr Amer 124 mL/min (>60); Globulin 4.2 g/dL (2.2-4.2); Glucose 93 mg/dL (74-106); Potassium 4.5 mmol/L (3.5-5.1); Protein, Total 7.5 g/dL (6.4-8.2); Sodium Level 140 mmol/L (136-145)
== END | disposition home or self-care (01) ==
LOC: MTLAB 10:22
PROVIDERS: Referring Provider Internal Medicine Rheumatology; Visit Provider Internal Medicine Rheumatology
DX: M06.4 Inflammatory polyarthropathy (principal); M35.00 Sjogren syndrome, unspecified; M47.897 Other spondylosis, lumbosacral region; E03.9 Hypothyroidism, unspecified; Z85.46 Personal history of malignant neoplasm of prostate; Z79.899 Other long term (current) drug therapy
CPT/HCPCS: 36415; 80053; 85025

== ENCOUNTER → 2023-11-02 | Outpatient (CLI) | payer MEDICARE, SELFPAY ==
--- OUTSIDE RECORDS SUMMARY | 2023-11-02 07:58 | XMS RPT_ITS | CCD ---
Author Name Unknown Address [address] [place] [address] Organization [facility] Care Team Providers Care Tourist Adviser Name Role Phone MAURI RUTHERFORD, Wu ROWLEY Primary Care Physician MINA RUTHERFORD, DR CONRAD Attending Ld DOTSON MD, Wu ROWLEY Primary Care Yarely DOTSON MD, Wu ROWLEY Attending Yarely DOTSON MD, [facility] Primary Care Yarely DOTSON MD, [facility] Primary Care Unavailable PARDEEP LUGO, KAREL Lara Attending Blaise LUGO, BETY French Attending Ana DOTSON MD, Wu HALLEY Primary Care Unavailable MAURI RUTHERFORD, Wu HALLEY Primary Care Unavailable ABRAHAM RUTHERFORD, ROGELIO Washburn Attending Yarely DOTSON MD, Wu HALLEY Primary Care Unavailable PARDEEP LUGO, KAREL Lara Attending Blaise LUGO, AMBER Attending Philip Chen MD, [facility] Primary Care Unavailable ANA CRISTINA LUGO, AMBER Attending Philip Chen MD, Wu MILL RUN Primary Care Unavailable ANA CRISTINA LUGO, AMBER Attending Philip Chen MD, Wu HALLEY Primary Care Yarely DOTSON MD, Wu MILL RUN Primary Care Unavailable DR ANAMARIA ENRIQUEZ MD Attending Ld DOTSON MD, [facility] Primary Care Unavailable ANA CRISTINA LUGO, AMBER Attending Philip Avila, KAREL Lara Attending Blaise DOTSON MD, Wu HALLEY Primary Care Unavailable Medications Current Medications Medication Drug Class(es) Dates Sig (Normalized) Sig (Original) acetaminophen 325 mg / HYDROcodone bitartrate 10 mg oral tablet (14 sources) Opioid Agonist Start: 07-27-2023 End: 08-26-2023 take 1 tablet by mouth every twelve hours as needed for pain Thomson 325-10 mg oral tablet Dose = 1 tab(s), Oral, q12hr, PRN as needed for pain, # 60 tab(s), 0 Refill(s), Pharmacy: [facility], Lumbar spinal stenosis, 182, cm, 07/27/23 10:46:00 EDT, Height, 77.2, kg, 07/27/23 10:46:00 EDT, Dosing Weight Start Date: 07/27/23 Stop Date: 08/26/23 Status: Ordered Problems Active Problems Problem Classification Problem Date Documented Da te Episodic/Chronic Cancer of prostate (14 sources) Malignant tumor of prostate 11-19-2020 Chronic Past or Other Problems Problem Classification Problem Date Documented Da te Episodic/Chronic Other male genital disorders (2 sources) Testicular pain, unspecified; Translations: [Testicular pain, unspecified] Onset: 03-24-2023 Episodic Residual codes; unclassified (14 sources) H/O: Disorder Onset: 10-10-2016 11-19-2020 Episodic Results Test Name Value Interpretation Reference Range Facil ity Encounters Encounter Date Encounter Type Care Provider Facility Start: 07-27-2023 End: 07-28-2023 ambulatory BETY KWAN AEROTRIANGULATION SPECIALIST-SWEET DOUGH MIXER Facility:B Start: 07-27-2023 End: 07-27-2023 Patient encounter procedure BETY KWAN AEROTRIANGULATION SPECIALIST-SWEET DOUGH MIXER [facility] Start: 07-11-2023 End: 07-12-2023 ambulatory Wu DOTSON MD Facility:A Start: 07-11-2023 End: 07-11-[address] ANAMARIA ENRIQUEZ MD [facility] Start: 05-16-2023 End: 05-17-2023 ambulatory Wu DOTSON MD Facility:B Start: 04-11-2023 ambulatory Wu DOTSON MD Faci lity:A Start: 04-06-2023 End: 04-07-2023 ambulatory Wu DOTSON MD Facility:A Start: 04-06-2023 End: 04-06-2023 Patient encounter procedure AMBER DE LA PAZ AEROTRIANGULATION SPECIALIST-SWEET DOUGH MIXER [facility] Start: 03-24-2023 End: 03-29-2023 ambulatory Wu DOTSON MD Facility:A Start: 03-24-2023 End: 03-24-2023 Patient encounter procedure KAREL Lara ARIANNAFERCHOALMA DELIA AEROTRIANGULATION SPECIALIST-SWEET DOUGH MIXER [facility] Start: 03-22-2023 End: 03-23-[address] ANAMARIA ENRIQUEZ MD Facility:A Start: 01-11-2023 End: 01-12-2023 ambulatory AMBER DE LA PAZ AEROTRIANGULATION SPECIALIST-SWEET DOUGH MIXER Facility:A Start: 01-11-2023 End: 01-11-2023 Patient encounter procedure AMBER DE LA PAZ AEROTRIANGULATION SPECIALIST-SWEET DOUGH MIXER [facility] Start: 12-30-2022 End: 02-07-2023 ambulatory Wu DOTSON MD Facility:A Start: 10-13-2022 End: 10-14-2022 ambulatory AMBER DE LA PAZ AEROTRIANGULATION SPECIALIST-SWEET DOUGH MIXER Facility:A Start: 10-13-2022 End: 10-13-2022 Patient encounter procedure AMBER DE LA PAZ AEROTRIANGULATION SPECIALIST-SWEET DOUGH MIXER [facility] Start: 08-18-2022 End: 08-19-2022 ambulatory AMBER DE LA PAZ AEROTRIANGULATION SPECIALIST-SWEET DOUGH MIXER Facility:A Start: 08-18-2022 End: 08-18-2022 Patient encounter procedure AMBER DE LA PAZ AEROTRIANGULATION SPECIALIST-SWEET DOUGH MIXER [facility] Start: 07-09-2022 End: 07-09-[address] ANAMARIA ENRIQUEZ MD [facility] Start: 07-07-2022 End: 07-07-2022 Patient encounter procedure AMBER DE LA PAZ AEROTRIANGULATION SPECIALIST-SWEET DOUGH MIXER [facility] Start: 06-18-2022 End: 06-18-2022 Patient encounter procedure AMBER DE LA PAZ AEROTRIANGULATION SPECIALIST-SWEET DOUGH MIXER [facility] Start: 02-16-2022 End: 02-16-2022 Patient encounter procedure AMBER DE LA PAZ AEROTRIANGULATION SPECIALIST-SWEET DOUGH MIXER [facility] Start: 12-17-2021 End: 12-17-2021 Patient encounter procedure AMBER DE LA PAZ AEROTRIANGULATION SPECIALIST-SWEET DOUGH MIXER [facility] Start: 10-14-2021 End: 10-14-[address] ROGELIO HARDING DO [facility] Start: 09-23-2021 End: 09-23-[address] EMMA LIMA MD [facility] Procedures Date Procedure Procedure Detail Performing Clinician Start: 06-25-2013 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 DR EMMA LIMA MD Immunizations Immunization Date Immunization Notes Care Provider [facility] 08-01-2016 tetanus and diphther ia toxoids, adsorbed, preservative free, for adult use (2 Lf of tetanus toxoid and 2 Lf of diphtheria toxoid) DR EMMA LIMA MD [facility] Payers Date Payer Category Payer Private Health Insurance [id number] 1950 Unknown [id number] 2.16.8 [id number] 1950 Unknown [id number] 2.16.8 [id number] 1952 Unknown [id number] 2.16.8 [id number] 1952 Unknown [id number] 2.16.8 [id number] 1952 Unknown [id number] 2.16.8 [id number] 1952 Unknown [id number] 2.16.8 [id number] 1952 Unknown [id number] 2.16.8 [id number] 1952 Unknown [id number] 2.16.8 [id number] 1952 Unknown [id number] 2.16.8 [id number] 1952 Unknown [id number] 2.16.8 [id number] 1952 Unknown [id number] 2.16.8 [id number] 1952 Unknown [id number] 2.16.8 [id number] Social History Date Type Detail Facility Start: 08-03-2019 Never smoked t obacco (finding) [facility] Sex Assigned At Male [facility] Medical Equipment Procedure Code Equipment Code Equipment Origin al Text Equipment Identifier Dates FDA Start: 08-23-2019 FDA Start: 08-23-2019 FDA Start: 08-23-2019 FDA Start: 08-23-2019 FDA Start: 08-23-2019 FDA Start: 08-23-2019 FDA Start: 08-23-2019 FDA Start: 08-23-2019 FDA Start: 08-23-2019 FDA Start: 08-23-2019 FDA Start: 08-23-2019 FDA Start: 08-23-2019 FDA Start: 08-23-2019 FDA Start: 08-23-2019 FDA Start: 08-23-2019 FDA Start: 08-23-2019 FDA Start: 08-23-2019 FDA Start: 08-23-2019 FDA Start: 08-23-2019 FDA Start: 08-23-2019 Knee Minimally Invasive Arthroplasty Unknown 08/23/19 Unknown Unknown FDA Start: 08-23-2019 Knee Minimally Invasive Arthroplasty Unknown 08/23/19 Unknown Unknown FDA Start: 08-23-2019 Knee Minimally Invasive Arthroplasty Unknown 08/23/19 Unknown Unknown FDA Start: 08-23-2019 Knee Minimally Invasive Arthroplasty Unknown 08/23/19 Unknown Unknown FDA Start: 08-23-2019 Knee Minimally Invasive Arthroplasty Unknown 08/23/19 Unknown Unknown FDA Start: 08-23-2019 Knee Minimally Invasive Arthroplasty Unknown 08/23/19 Unknown Unknown FDA Start: 08-23-2019 Knee Minimally Invasive Arthroplasty Unknown 08/23/19 Unknown Unknown FDA Start: 08-23-2019 Knee Minimally Invasive Arthroplasty Unknown 08/23/19 Unknown Unknown FDA Start: 08-23-2019 Knee Minimally Invasive Arthroplasty Unknown 08/23/19 Unknown Unknown FDA Start: 08-23-2019 Knee Minimally Invasive Arthroplasty Unknown 08/23/19 Unknown Unknown FDA Start: 08-23-2019 Knee Minimally Invasive Arthroplasty Unknown 08/23/19 Unknown Unknown FDA Start: 08-23-2019 Knee Minimally Invasive Arthroplasty Unknown 08/23/19 Unknown Unknown FDA Start: 08-23-2019 Knee Minimally Invasive Arthroplasty Unknown 08/23/19 Unknown Unknown FDA Start: 08-23-2019 Knee Minimally Invasive Arthroplasty Unknown 08/23/19 Unknown Unknown FDA Start: 08-23-2019 Knee Minimally Invasive Arthroplasty Unknown 08/23/19 Unknown Unknown FDA Start: 08-23-2019 Knee Minimally Invasive Arthroplasty Unknown 08/23/19 Unknown Unknown FDA Start: 08-23-2019 Knee Minimally Invasive Arthroplasty Unknown 08/23/19 Unknown Unknown FDA Start: 08-23-2019 Knee Minimally Invasive Arthroplasty Unknown 08/23/19 Unknown Unknown FDA Start: 08-23-2019 Knee Minimally Invasive Arthroplasty Unknown 08/23/19 Unknown Unknown FDA Start: 08-23-2019 Knee Minimally Invasive Arthroplasty Unknown 08/23/19 Unknown Unknown FDA Start: 08-23-2019 Knee Minimally Invasive Arthroplasty Unknown 08/23/19 Unknown Unknown FDA Start: 08-23-2019 Knee Minimally Invasive Arthroplasty Unknown 08/23/19 Unknown Unknown FDA Start: 08-23-2019 Knee Minimally Invasive Arthroplasty Unknown 08/23/19 Unknown Unknown FDA Start: 08-23-2019 Knee Minimally Invasive Arthroplasty Unknown 08/23/19 Unknown Unknown FDA Start: 08-23-2019 Knee Minimally Invasive Arthroplasty Unknown 08/23/19 Unknown Unknown FDA Start: 08-23-2019 Knee Minimally Invasive Arthroplasty Unknown 08/23/19 Unknown Unknown FDA Start: 08-23-2019 Knee Minimally Invasive Arthroplasty Unknown 08/23/19 Unknown Unknown FDA Start: 08-23-2019 Knee Minimally Invasive Arthroplasty Unknown 08/23/19 Unknown Unknown FDA Start: 08-23-2019 Knee Minimally Invasive Arthroplasty Unknown 08/23/19 Unknown Unknown FDA Start: 08-23-2019 Knee Minimally Invasive Arthroplasty Unknown 08/23/19 Unknown Unknown FDA Start: 08-23-2019 Knee Minimally Invasive Arthroplasty Unknown 08/23/19 Unknown Unknown FDA Start: 08-23-2019 Knee Minimally Invasive Arthroplasty Unknown 08/23/19 Unknown Unknown FDA Start: 08-23-2019 Knee Minimally Invasive Arthroplasty Unknown 08/23/19 Unknown Unknown FDA Start: 08-23-2019 Knee Minimally Invasive Arthroplasty Unknown 08/23/19 Unknown Unknown FDA Start: 08-23-2019 Knee Minimally Invasive Arthroplasty Unknown 08/23/19 Unknown Unknown FDA Start: 08-23-2019 Knee Minimally Invasive Arthroplasty Unknown 08/23/19 Unknown Unknown FDA Start: 08-23-2019 Knee Minimally Invasive Arthroplasty Unknown 08/23/19 Unknown Unknown FDA Start: 08-23-2019 Knee Minimally Invasive Arthroplasty Unknown 08/23/19 Unknown Unknown FDA Start: 08-23-2019 Knee Minimally Invasive Arthroplasty Unknown 08/23/19 Unknown Unknown FDA Start: 08-23-2019 Knee Minimally Invasive Arthroplasty Unknown 08/23/19 Unknown Unknown FDA Start: 08-23-2019 Knee Minimally Invasive Arthroplasty Unknown 08/23/19 Unknown Unknown FDA Start: 08-23-2019 Knee Minimally Invasive Arthroplasty Unknown 08/23/19 Unknown Unknown FDA Start: 08-23-2019 Knee Minimally Invasive Arthroplasty Unknown 08/23/19 Unknown Unknown FDA Start: 08-23-2019 Knee Minimally Invasive Arthroplasty Unknown 08/23/19 Unknown Unknown FDA Start: 08-23-2019 Knee Minimally Invasive Arthroplasty Unknown 08/23/19 Unknown Unknown FDA Start: 08-23-2019 Knee Minimally Invasive Arthroplasty Unknown 08/23/19 Unknown Unknown FDA Start: 08-23-2019 Knee Minimally Invasive Arthroplasty Unknown 08/23/19 Unknown Unknown FDA Start: 08-23-2019 Knee Minimally Invasive Arthroplasty Unknown 08/23/19 Unknown Unknown FDA Start: 08-23-2019 Knee Minimally Invasive Arthroplasty Unknown 08/23/19 Unknown Unknown FDA Start: 08-23-2019 Knee Minimally Invasive Arthroplasty Unknown 08/23/19 Unknown Unknown FDA Start: 08-23-2019 Clinical Notes 03-26-2023 LaboratoryLaboratoryLaboratoryLaboratoryLaboratoryLaboratoryLaboratoryLaboratory LaboratoryLaboratoryLaboratoryLaboratoryLaboratory Note Date & Type Note Facility 03-26-2023 Note . MICRO - Microbiology PROCEDURE: Urine Culture [*1] SOURCE: Urine, Clean Catch BODY SITE: COLLECTED DATE/TIME: 03/24/2023 14:18 EDT RECEIVED DATE/TIME: 03/24/2023 19:13 EDT START DATE/TIME: 03/24/2023 19:13 EDT FREE TEXT SOURCE: FINAL REPORTS Final Report [] Verified Date/Time/Personnel: 03/26/2023 07:26 EDT No growth at 48 hours. PRELIMINARY REPORTS Preliminary Report [] Verified Date/Time/Personnel: 03/25/2023 10:03 EDT No growth to date Performing Locations *1: This test was performed at: [facility], [address] [place] [address], [facility] , [facility] ([place]) Evaluation + Plan note Future Appointments Appointment Date:10/14/2021 07:30:00 AM Scheduled Provider:AMBER DE LA PAZ Location:PM Office Appointment Type:PM OV ANA CRISTINA GUY Appointment Date:11/27/2021 08:10:00 AM Scheduled Provider:ANAMARIA ENRIQUEZ MD Location:UROLOGY Appointment Type:URO OV Future Scheduled TestsProstate Specific Antigen 11/24/21 [facility] Evaluation + Plan note Future Appointments Appointment Date:11/27/2021 08:10:00 AM Scheduled Provider:ANAMARIA ENRIQUEZ MD Location:UROLOGY Appointment Type:URO OV Appointment Date:12/17/2021 07:30:00 AM Scheduled Provider:AMBER DE LA PAZ Location:PM Office Appointment Type:PM OV ANA CRISTINA GUY Future Scheduled TestsProstate Specific Antigen 11/24/21 [facility] Evaluation + Plan note Future Appointments Appointment Date:02/16/2022 07:30:00 AM Scheduled Provider:AMBER DE LA PAZ Location:PM Office Appointment Type:PM OV ANA CRISTINA GUY Future Scheduled TestsProstate Specific Antigen 11/24/21 [facility] Evaluation + Plan note Future Appointments Appointment Date:04/16/2022 07:30:00 AM Scheduled Provider:AMBER DE LA PAZ Location:PM Office Appointment Type:PM OV ANA CRISTINA GUY Appointment Date:04/16/2022 01:10:00 PM Scheduled Provider:ANAMARIA ENRIQUEZ MD Location:UROLOGY Appointment Type:URO OV Future Scheduled TestsProstate Specific Antigen 11/24/21 [facility] Evaluation + Plan note Future Appointments Appointment Date:07/09/2022 09:10:00 AM Scheduled Provider:ANAMARIA ENRIQUEZ MD Location:UROLOGY Appointment Type:URO OV Appointment Date:08/18/2022 07:00:00 AM Scheduled Provider:AMBER DE LA PAZ Location:PM Office Appointment Type:PM OV Plus Future Scheduled TestsProstate Specific Antigen 11/24/21 [facility] Evaluation + Plan note Future Appointments Appointment Date:08/18/2022 07:00:00 AM Scheduled Provider:AMBER DE LA PAZ Location:PM Office Appointment Type:PM OV Plus Appointment Date:07/11/2023 09:10:00 AM Scheduled Provider:ANAMARIA ENRIQUEZ MD Location:UROLOGY Appointment Type:URO OV Future Scheduled TestsProstate Specific Antigen 11/24/21Prostate Specific Antigen 07/09/22Prostate Specific Antigen 07/09/23 [facility] Evaluation + Plan note Future Appointments Appointment Date:10/13/2022 07:00:00 AM Scheduled Provider:AMBER DE LA PAZ Location:PM Office Appointment Type:PM OV ANA CRISTINA GUY Appointment Date:07/11/2023 09:10:00 AM Scheduled Provider:ANAMARIA ENRIQUEZ MD Location:UROLOGY Appointment Type:URO OV Future Scheduled TestsProstate Specific Antigen 2/15/22Prostate Specific Antigen 9/30/22Prostate Specific Antigen 9/30/ [facility] Evaluation + Plan note Future Appointments Appointment Date:01/11/2023 07:00:00 AM Scheduled Provider:AMBER DE LA PAZ Location:PM Office Appointment Type:PM OV ANA CRISTINA AW Appointment Date:07/11/2023 09:10:00 AM Scheduled Provider:ANAMARIA ENRIQUEZ MD Location:UROLOGY Appointment Type:URO OV Future Scheduled TestsProstate Specific Antigen 2/15/22Prostate Specific Antigen 9/30/22Prostate Specific Antigen /30/ [facility] Evaluation + Plan note Future Appointments Appointment Date:04/13/2023 07:00:00 AM Scheduled Provider:AMBER DE LA PAZ Location:PM Office Appointment Type:PM OV DE LA PAZ AW Appointment Date:07/11/2023 09:10:00 AM Scheduled Provider:ANAMARIA ENRIQUEZ MD Location:UROLOGY Appointment Type:URO OV Future Scheduled TestsProstate Specific Antigen 9/30/22Prostate Specific Antigen /30/ [facility] Evaluation + Plan note Future Appointments Appointment Date:04/06/2023 08:00:00 AM Scheduled Provider:AMBER DE LA PAZ Location:PM Office Appointment Type:PM OV ANA CRISTINA AW Appointment Date:05/16/2023 08:30:00 AM Scheduled Provider:ROGELIO ROSARIO MD Location:[facility] PM Appointment Type:PM DAY CARE TEACHER Appointment Date:07/11/2023 09:10:00 AM Scheduled Provider:ANAMARIA ENRIQUEZ MD Location:UROLOGY Appointment Type:URO OV Future Scheduled TestsProstate Specific Antigen 9/30/22Prostate Specific Antigen 9/30/ [facility] Evaluation + Plan note Future Appointments Appointment Date:05/16/2023 08:45:00 AM Scheduled Provider:ROGELIO ROSARIO MD Location:[facility] PM Appointment Type:PM DAY CARE TEACHER Appointment Date:07/11/2023 09:10:00 AM Scheduled Provider:ANAMARIA ENRIQUEZ MD Location:UROLOGY Appointment Type:URO OV Future Scheduled TestsProstate Specific Antigen 07/09/22Prostate Specific Antigen 07/09/23 [facility] Evaluation + Plan note Future Appointments Appointment Date:07/27/2023 10:45:00 AM Scheduled Provider:BETY KWAN Location:[facility] PM Appointment Type:PM OV Appointment Date:07/16/2024 08:10:00 AM Scheduled Provider:ANAMARIA ENRIQUEZ MD Location:UROLOGY Appointment Type:URO OV Future Scheduled TestsProstate Specific Antigen 07/09/23Prostate Specific Antigen 07/11/24 [facility] Evaluation + Plan note Future Appointments Appointment Date:09/14/2023 08:15:00 AM Scheduled Provider:BETY KWAN Location:[facility] PM Appointment Type:PM OV Appointment Date:07/16/2024 08:10:00 AM Scheduled Provider:ANAMARIA ENRIQUEZ MD Location:UROLOGY Appointment Type:URO OV Future Scheduled TestsProstate Specific Antigen 07/09/23Prostate Specific Antigen 07/11/24 [facility] course Narrative No data available for this section [facility] Hospital Discharge instructions No data available for this section [facility] Progress note No data available for this section [facility] Summary Purpose Family History No Family History Records Found Advance Directives No Advanced Directives Records Found Additional Source Comments Care Team (unrecognized sect ion and content) Personnel Name: Wu DOTSON MD Address: [address] [place] [address] Care Team Personnel Name: Wu DOTSON MD Member Role: Primary Care Physician Address: Address: [address] [place] [address] Name: AMBER DE LA PAZ Position: P4 Advanced Dairy Nutrition Consultant Member Role: Pain Management Address: Address: [address] [facility] [place] [address]- Care Team Related Persons Name: SHIPMANESManolo Paz Address: Home [address] [place] [phone] [place] Care Team Personnel Name: Wu DOTSON MD Member Role: Primary Care Physician Address: Address: [facility] [place] [address]- Name: AMBER DE LA PAZ Position: P4 Advanced Dairy Nutrition Consultant Member Role: Pain Management Address: Address: [address] [facility][note 2] Pain Management [facility] [address]- Care Team Related Persons Name: KEN CRENSHAW Address: Home [address] [place] [phone] [place] Care Team Personnel Name: Wu DOTSON MD Member Role: Primary Care Physician Address: Address: [facility] [address] [id number]- Name: AMBER DE LA PAZ Position: P4 Advanced Dairy Nutrition Consultant Member Role: Pain Management Address: Address: [address] [facility] [place][note 2] [place] [address]- Care Team Related Persons Name: SHIPMANESManolo Paz Address: Home [address] [place] [phone] [place] Care Team Personnel Name: ANAMARIA ENRIQUEZ MD Position: P4 Physician - Urologist Member Role: Urologist Address: Address: [address] [place] [address] Urology [place] [id number]- Name: Wu DOTSON MD Member Role: Primary Care Physician Address: Address: [facility] [place] [address]- Name: AMBER DE LA PAZ Position: P4 Advanced Dairy Nutrition Consultant Member Role: Pain Management Address: Address: [address] [facility] [place] [address]- Care Team Related Persons Name: KEN CRENSHAW Address: Home [address] [place] [phone] [place] Care Team Personnel Name: ANAMARIA ENRIQUEZ MD Position: P4 Physician - Urologist Member Role: Urologist Address: Address: [address] [facility] [address] [place] [address]- Name: Wu DOTSON MD Member Role: Primary Care Physician Address: Address: [address] [facility] [place] [address]- Name: AMBER DE LA PAZ Position: P4 Advanced Dairy Nutrition Consultant Member Role: Pain Management Address: Address: [address] [facility] [place] [address]- Care Team Related Persons Name: SHIPMANESManolo Paz Address: Home [address] [place] [phone] [place] Care Team (unrecognized sect ion and content) Care Team Personnel Name: Wu DOTSON MD Position: P3 Physician - Endocrinology Med Service: Active Provider Member Role: Primary Care Physician Address: Address: [facility] [place] [address]- Name: AMBER DE LA PAZ Position: P4 Advanced Practice Nurse Med Service: Active Provider Member Role: Pain Management Address: Address: [address] [facility] [place] [address]- Care Team Related Persons Name: KEN CRENSHAW Address: Home [address] [place] [phone] [place] Care Team Personnel Name: Wu DOTSON MD Position: P3 Physician - Endocrinology Med Service: Active Provider Member Role: Primary Care Physician Address: Address: [address] [facility] [place] [address]- Name: AMBER DE LA PAZ Position: P4 Advanced Practice Nurse Med Service: Active Provider Member Role: Pain Management Address: Address: [address] [facility] [place] [address]- Care Team Related Persons Name: KEN CRENSHAW Address: Home [address] [place] [phone] [place] Care Team Personnel Name: Wu DOTSON MD Position: P3 Physician - Endocrinology Med Service: Active Provider Member Role: Primary Care Physician Address: Address: [facility] [address] [id number]- Name: AMBER DE LA PAZ Position: P4 Advanced Practice Nurse Med Service: Active Provider Member Role: Pain Management Address: Address: [address] [facility] [place] [address]- Care Team Related Persons Name: KEN CRENSHAW Address: Home [address] [place] [address] [phone] Care Team Personnel Name: Wu DOTSON MD Position: P3 Physician - Endocrinology Member Role: Primary Care Physician Address: Address: [address] [place] [address] Name: AMBER DE LA PAZ Position: P4 Advanced Practice Nurse Member Role: Pain Management Address: Address: [address] [facility] [place], [place] [address] Care Team Related Persons Name: KEN CRENSHAW Address: [address] [phone] Care Team Personnel Name: Wu DOTSON MD Position: P3 Physician - Endocrinology Member Role: Primary Care Physician Address: Address: [address] [place] [address] Name: AMBER DE LA PAZ Position: P4 Advanced Practice Nurse Member Role: Pain Management Address: Address: [address] [facility] [place], [place] [address] Care Team Related Persons Name: KEN CRENSHAW Address: [address] [phone] (unrecognized sect ion and content) No Status Records Found INFORMATION SOURCE (unrecogn ized section and content) FOR RECORDS PERTAINING TO PATIENTS WHO ARE OR HAVE BEEN ENROLLED IN A CHEMICAL DEPENDENCY/SUBSTANCEABUSE PROGRAM, SOME INFORMATION MAY BE OMITTED. This clinical summary was aggregated from multiple sources. Caution should be exercised in using it in the provision of clinical care. This summary normalizes information from multiple sources, and as a consequence, information in this document may materially change the coding, format and clinical context of patient data. In addition, data may be omitted in some cases. CLINICAL DECISIONS SHOULD BE BASED ON THE PRIMARY CLINICAL RECORDS. [employer] provides no warranty or guarantee of the accuracy or completeness of information in this document.
[2023-11-02 11:05] LABS: Vitamin D,25 Hydroxy 61.1 ng/mL
[2023-11-02 14:00] LABS: ALB/GLOB Ratio 0.9 RATIO (0.9-2.4); AST(SGOT) 38 U/L (15-37); Alanine Aminotransfer ALT/SGPT 31 U/L (16-61); Albumin, Serum 3.6 g/dL (3.2-5.0); Alkaline Phosphatase 80 U/L (45-117); Anion Gap 5 (5-15); BUN 17 mg/dL (7-18); Calcium,Total 9.4 mg/dL (8.5-10.1); Chloride 105 mmol/L (98-107); Cholesterol 206 mg/dL (200); Creatinine, Serum 0.68 mg/dL (0.70-1.30); EST Glomerular Filtration Rate 122 mL/min (>60); Est Glom Filt Rate - Afr Amer 148 mL/min (>60); Globulin 4.2 g/dL (2.2-4.2); Glucose 94 mg/dL (74-106); High Density Lipoprotein 44 mg/dL; Potassium 3.9 mmol/L (3.5-5.1); Protein, Total 7.8 g/dL (6.4-8.2); Sodium Level 138 mmol/L (136-145); Thyroid Stim Hormone (TSH) 1.55 uIU/mL (0.358-3.74); Triglycerides 104 mg/dL; Very Low Density Lipoprotein 21 mg/dL (5-40)
== END | disposition home or self-care (01) ==
PROVIDERS: Referring Provider Internal Medicine Endocrinology, Diabetes & Metabolism; Visit Provider Internal Medicine Endocrinology, Diabetes & Metabolism
DX: E03.8 Other specified hypothyroidism (principal); E78.2 Mixed hyperlipidemia; E04.2 Nontoxic multinodular goiter; E55.9 Vitamin D deficiency, unspecified
CPT/HCPCS: 36415; 80053; 80061; 82306; 84443

== ENCOUNTER → 2023-12-13 | Outpatient (CLI) | payer MEDICARE, SELFPAY ==
--- OUTSIDE RECORDS SUMMARY | 2023-12-13 11:25 | XMS RPT_ITS | CCD ---
Author Name Unknown Address [address] [facility] [address] [place] [address] Organization [facility] Care Team Providers Care Project Control Analyst Name Role Phone MAURI RUTHERFORD, Wu ROWLEY Primary Care Physician DR ANAMARIA ENRIQUEZ MD Attending Ld DOTSON MD, Wu ROWLEY Primary Care Yarely DOTSON MD, Wu ROWLEY Attending Yarely DOTSON MD, Wu HALLEY Primary Care Yarely DOTSON MD, [facility] Primary Care Unavailable PARDEEP LUGO, KAREL Lara Attending Blaise LUGO, BETY French Attending Ana DOTSON MD, Wu HALLEY Primary Care Unavailable MAURI RUTHERFORD, Wu HALLEY Primary Care Unavailable ROGELIO ROSARIO MD Attending Yarely DOTSON MD, Wu HALLEY Primary Care Unavailable PARDEEP LUGO, KAREL Lara Attending U alexandro LUGO, AMBER Attending Philip Chen MD, Wu HALLEY Primary Care Unavailable ANA CRISTINA LUGO, AMBER Attending Philip Chen MD, Wu HALLEY Primary Care Unavailable ANA CRISTINA LUGO, AMBER Attending Philip Chen MD, Wu MUSE Primary Care Yarely DOTSON MD, Wu ROWLEY Primary Care Unavailable DR ANAMARIA ENRIQUEZ MD Attending Ld DOTSON MD, Wu HALLEY Primary Care Yarely LUGO, AMBER Attending Philip Avila, KAREL Lara Attending Blaise DOTSON MD, Wu HALLEY Primary Care Unavailable MAURI RUTHERFORD, Wu ROWLEY Primary Care Physician Medications Current Medications Medication Drug Class(es) Dates Sig (Normalized) Sig (Original) acetaminophen 325 mg / HYDROcodone bitartrate 10 mg oral tablet (16 sources) Opioid Agonist Start: 11-09-2023 End: 01-06-2024 take 1 tablet by mouth every twelve hours as needed for pain [place] 325-10 mg oral tablet Dose = 1 tab(s), Oral, q12hr, PRN as needed for pain, # 60 tab(s), 0 Refill(s), Pharmacy: [facility], Lumbar spinal stenosis, 182, cm, 12/07/23 7:54:00 EST, Height, 79, kg, 12/07/23 7:54:00 EST, Dosing Weight Start Date: 12/07/23 Stop Date: 01/06/24 Status: Ordered Problems Active Problems Problem Classification Problem Date Documented Da te Episodic/Chronic Cancer of prostate (16 sources) Malignant tumor of prostate 11-19-2020 Chronic Past or Other Problems Problem Classification Problem Date Documented Da te Episodic/Chronic Other male genital disorders (2 sources) Testicular pain, unspecified; Translations: [Testicular pain, unspecified] Onset: 03-24-2023 Episodic Residual codes; unclassified (16 sources) H/O: Disorder Onset: 10-10-2016 11-19-2020 Episodic Results Test Name Value Interpretation Reference Range Facil ity Encounters Encounter Date Encounter Type Care Provider Facility Start: 12-07-2023 End: 12-07-2023 Patient encounter procedure BETY KWAN COPYRIGHT CLERK-TIRE MANAGER [facility] Start: 11-09-2023 End: 11-09-2023 Patient encounter procedure BETY KWAN COPYRIGHT CLERK-TIRE MANAGER [facility] Start: 07-27-2023 End: 07-28-2023 ambulatory BETY KWAN COPYRIGHT CLERK-TIRE MANAGER Facility:B Start: 07-27-2023 End: 07-27-2023 Patient encounter procedure BETY KWAN COPYRIGHT CLERK-TIRE MANAGER [facility] Start: 07-11-2023 End: 07-12-2023 ambulatory Wu DOTSON MD Facility:A Start: 07-11-2023 End: 07-11-[address] ANAMARIA ENRIQUEZ MD [facility] Start: 05-16-2023 End: 05-17-2023 ambulatory Wu DOTSON MD Facility:B Start: 04-11-2023 ambulatory Wu DOTSON MD Faci lity:A Start: 04-06-2023 End: 04-07-2023 ambulatory Wu DOTSON MD Facility:A Start: 04-06-2023 End: 04-06-2023 Patient encounter procedure AMBER DE LA PAZ COPYRIGHT CLERK-TIRE MANAGER [facility] Start: 03-24-2023 End: 03-29-2023 ambulatory Wu DOTSON MD Facility:A Start: 03-24-2023 End: 03-24-2023 Patient encounter procedure KAREL ROBERTO COPYRIGHT CLERK-TIRE MANAGER [facility] Start: 03-22-2023 End: 03-23-[address] ANAMARIA ENRIQUEZ MD Facility:A Start: 01-11-2023 End: 01-12-2023 ambulatory AMBER DE LA PAZ COPYRIGHT CLERK-TIRE MANAGER Facility:A Start: 01-11-2023 End: 01-11-2023 Patient encounter procedure AMBER DE LA PAZ COPYRIGHT CLERK-TIRE MANAGER [facility] Start: 12-30-2022 End: 02-07-2023 ambulatory Wu DOTSON MD Facility:A Start: 10-13-2022 End: 10-14-2022 ambulatory AMBER DE LA PAZ COPYRIGHT CLERK-TIRE MANAGER Facility:A Start: 10-13-2022 End: 10-13-2022 Patient encounter procedure AMBER DE LA PAZ COPYRIGHT CLERK-TIRE MANAGER [facility] Start: 08-18-2022 End: 08-19-2022 ambulatory AMBER DE LA PAZ COPYRIGHT CLERK-TIRE MANAGER Facility:A Start: 08-18-2022 End: 08-18-2022 Patient encounter procedure AMBER DE LA PAZ COPYRIGHT CLERK-TIRE MANAGER [facility] Start: 07-09-2022 End: 07-09-[address] ANAMARIA ENRIQUEZ MD [facility] Start: 07-07-2022 End: 07-07-2022 Patient encounter procedure AMBER DE LA PAZ COPYRIGHT CLERK-TIRE MANAGER [facility] Start: 06-18-2022 End: 06-18-2022 Patient encounter procedure AMBER DE LA PAZ COPYRIGHT CLERK-TIRE MANAGER [facility] Start: 02-16-2022 End: 02-16-2022 Patient encounter procedure AMBER DE LA PAZ COPYRIGHT CLERK-TIRE MANAGER [facility] Start: 12-17-2021 End: 12-17-2021 Patient encounter procedure AMBER DE LA PAZ COPYRIGHT CLERK-TIRE MANAGER [facility] Start: 10-14-2021 End: 10-14-[address] ROGELIO HARDING DO [facility] Start: 09-23-2021 End: 09-23-[address] EMMA LIMA MD [facility] Procedures Date Procedure Procedure Detail Performing Clinician Start: 06-25-2013 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 DR EMMA LIMA MD Immunizations Immunization Date Immunization Notes Care Provider [facility] 08-01-2016 tetanus and diphther ia toxoids, adsorbed, preservative free, for adult use (2 Lf of tetanus toxoid and 2 Lf of diphtheria toxoid) DR EMMA LIMA MD [facility] Payers Date Payer Category Payer Private Health Insurance [id number] 1950 Unknown [id number] 2.16.8 [id number] 1950 Unknown [id number] 2.16.8 [id number] 1952 Unknown [id number] 2.16.8 [id number] 1952 Unknown [id number] 2.16.8 [id number] 1952 Unknown [id number] 2.16.8 [id number] 1952 Unknown [id number] 2.16.8 [id number] 1952 Unknown [id number] 2.16.8 [id number] 1952 Unknown [id number] 2.16.8 [id number] 1952 Unknown [id number] 2.16.8 [id number] 1952 Unknown [id number] 2.16.8 [id number] 1952 Unknown [id number] 2.16.8 [id number] 1952 Unknown [id number] 2.16.8 [id number] Social History Date Type Detail Facility Start: 08-03-2019 Never smoked t obnorma (finding) [facility] Sex Assigned At Male [facility] Medical Equipment Procedure Code Equipment Code Equipment [...] FDA Start: 08-23-2019 Clinical Notes 03-26-2023 LaboratoryLaboratoryLaboratoryLaboratoryLaboratoryLaboratoryLaboratoryLaboratory LaboratoryLaboratoryLaboratoryLaboratoryLaboratoryLaboratoryLaboratory Note Date & Type Note Facility 03-26-2023 [...] Locations *1: This test was performed at: [facility], [address] [place] [address], [address] , [facility] ([place]) Evaluation + Plan note Future Appointments Appointment Date:10/14/2021 07:30:00 AM Scheduled Provider:AMBER DE LA PAZ Location:PM Office Appointment Type:PM OV ANA CRISTINA GUY Appointment Date:11/27/2021 08:10:00 AM Scheduled Provider:ANAMARIA ENRIQUEZ MD Location:UROLOGY Appointment Type:URO OV Future Scheduled TestsProstate Specific Antigen 11/24/21 [facility] Evaluation + Plan note Future Appointments Appointment Date:11/27/2021 08:10:00 AM Scheduled Provider:ANAMARIA ENRIQUEZ MD Location:UROLOGY Appointment Type:URO OV Appointment Date:12/17/2021 07:30:00 AM Scheduled Provider:AMBER DE LA PAZ Location:PM Office Appointment Type:PM OV ANA CRISTINA GUY Future Scheduled TestsProstate Specific Antigen 11/24/21 [facility] Evaluation + Plan note Future Appointments Appointment Date:02/16/2022 07:30:00 AM Scheduled Provider:AMBER DE LA PAZ Location:PM Office Appointment Type:PM OV ANA CRISTINA GUY Future Scheduled TestsProstate Specific Antigen 11/24/21 [facility] Evaluation + Plan note Future Appointments Appointment Date:04/16/2022 07:30:00 AM Scheduled Provider:AMBER DE LA PAZ Location:PM Office Appointment Type:PM OV DE LA PAZ AW Appointment Date:04/16/2022 01:10:00 PM Scheduled Provider:ANAMARIA ENRIQUEZ MD Location:UROLOGY Appointment Type:URO OV Future Scheduled TestsProstate Specific Antigen 2/15/22 [facility] Evaluation + Plan note Future Appointments Appointment Date:07/09/2022 09:10:00 AM Scheduled Provider:ANAMARIA ENRIQUEZ MD Location:UROLOGY Appointment Type:URO OV Appointment Date:08/18/2022 07:00:00 AM Scheduled Provider:AMBER DE LA PAZ Location:PM Office Appointment Type:PM OV Plus Future Scheduled TestsProstate Specific Antigen 2/15/22 [facility] Evaluation + Plan note Future Appointments Appointment Date:08/18/2022 07:00:00 AM Scheduled Provider:AMBER DE LA PAZ Location:PM Office Appointment Type:PM OV Plus Appointment Date:07/11/2023 09:10:00 AM Scheduled Provider:ANAMARIA ENRIQUEZ MD Location:UROLOGY Appointment Type:URO OV Future Scheduled TestsProstate Specific Antigen 2/15/22Prostate Specific Antigen 9/30/22Prostate Specific Antigen /30/ [facility] Evaluation + Plan note Future Appointments Appointment Date:10/13/2022 07:00:00 AM Scheduled Provider:AMBER DE LA PAZ Location:PM Office Appointment Type:PM OV ANA CRISTINA AW Appointment Date:07/11/2023 09:10:00 AM Scheduled Provider:ANAMARIA ENRIQUEZ MD Location:UROLOGY Appointment Type:URO OV Future Scheduled TestsProstate Specific Antigen 2/15/22Prostate Specific Antigen 9/30/22Prostate Specific Antigen 9/30/23 [facility] Evaluation + Plan note Future Appointments Appointment Date:01/11/2023 07:00:00 AM Scheduled Provider:AMBER DE LA PAZ Location:PM Office Appointment Type:PM OV ANA CRISTINA AW Appointment Date:07/11/2023 09:10:00 AM Scheduled Provider:ANAMARIA ENRIQUEZ MD Location:UROLOGY Appointment Type:URO OV Future Scheduled TestsProstate Specific Antigen 2/15/22Prostate Specific Antigen 9/30/22Prostate Specific Antigen 9/30/ [facility] Evaluation + Plan note Future Appointments Appointment Date:04/13/2023 07:00:00 AM Scheduled Provider:AMBER DE LA PAZ Location:PM Office Appointment Type:PM OV ANA CRISTINA AW Appointment Date:07/11/2023 09:10:00 AM Scheduled Provider:ANAMARIA ENRIQUEZ MD Location:UROLOGY Appointment Type:URO OV Future Scheduled TestsProstate Specific Antigen 9/30/22Prostate Specific Antigen /30/ [facility] Evaluation + Plan note Future Appointments Appointment Date:04/06/2023 08:00:00 AM Scheduled Provider:AMBER DE LA PAZ Location:PM Office Appointment Type:PM OV ANA CRISTINA AW Appointment Date:05/16/2023 08:30:00 AM Scheduled Provider:ROGELIO ROSARIO MD Location:[facility] PM Appointment Type:PM FREIGHT ENGINEER Appointment Date:07/11/2023 09:10:00 AM Scheduled Provider:ANAMARIA ENRIQUEZ MD Location:UROLOGY Appointment Type:URO OV Future Scheduled TestsProstate Specific Antigen 9/30/22Prostate Specific Antigen 07/09/ [facility] Evaluation + Plan note Future Appointments Appointment Date:05/16/2023 08:45:00 AM Scheduled Provider:ROGELIO ROSARIO MD Location:[facility] PM Appointment Type:PM FREIGHT ENGINEER Appointment Date:07/11/2023 09:10:00 AM Scheduled Provider:ANAMARIA ENRIQUEZ MD Location:UROLOGY Appointment Type:URO OV Future Scheduled TestsProstate Specific Antigen 9/30/22Prostate Specific Antigen /30/ [facility] Pain [facility] Evaluation + Plan note Future Appointments Appointment Date:07/27/2023 10:45:00 AM Scheduled Provider:BETY KWAN Location:[facility] PM Appointment Type:PM OV Appointment Date:07/16/2024 08:10:00 AM Scheduled Provider:ANAMARIA ENRIQUEZ MD Location:UROLOGY Appointment Type:URO OV Future Scheduled TestsProstate Specific Antigen 9/30/23Prostate Specific Antigen /12/03 [facility] Evaluation + Plan note Future Appointments Appointment Date:09/14/2023 08:15:00 AM Scheduled Provider:BETY KWAN Location:[facility] PM Appointment Type:PM OV Appointment Date:07/16/2024 08:10:00 AM Scheduled Provider:ANAMARIA ENRIQUEZ MD Location:UROLOGY Appointment Type:URO OV Future Scheduled TestsProstate Specific Antigen 9/30/23Prostate Specific Antigen 07/11/24 [facility] Evaluation + Plan note Future Appointments Appointment Date:12/07/2023 08:00:00 AM Scheduled Provider:BETY KWAN Location:[facility] PM Appointment Type:PM OV Appointment Date:07/16/2024 08:10:00 AM Scheduled Provider:ANAMARIA ENRIQUEZ MD Location:UROLOGY Appointment Type:URO OV Future Scheduled TestsProstate Specific Antigen 9/30/23Prostate Specific Antigen 24 [facility] Evaluation + Plan note Future Appointments Appointment Date:03/07/2024 08:00:00 AM Scheduled Provider:BETY KWAN Location:[facility] PM Appointment Type:PM OV Appointment Date:07/16/2024 08:10:00 AM Scheduled Provider:ANAMARIA ENRIQUEZ MD Location:UROLOGY Appointment Type:URO OV Future Scheduled TestsProstate Specific Antigen 9/30/23Prostate Specific Antigen 24 [facility] Hospital course Narrative No data available for this section [facility] Hospital Discharge instructions No data available for this section [facility] Progress note No data available for this section [facility] Summary Purpose Family History No Family History Records Found Advance Directives No Advanced Directives Records Found Additional Source Comments Care Team (unrecognized sect ion and content) Personnel Name: Wu DOTSON MD Address: [address] [place] [id number]- Care Team Personnel Name: Wu DOTSON MD Member Role: Primary Care Physician Address: Address: [facility] [place] [id number]- Name: AMBER DE LA PAZTIRE MANAGER Position: P4 Advanced Core Machine Tender Member Role: Pain Management Address: Address: [address] [facility] [place] [address]- Care Team Related Persons Name: KEN CRENSHAW Address: Home [address] [place] [phone] [place] Care Team Personnel Name: Wu DOTSON MD Member Role: Primary Care Physician Address: Address: [place] [address]- Name: AMBER DE LA PAZ APRN-TIRE MANAGER Position: P4 Advanced Core Machine Tender Member Role: Pain Management Address: Address: [address] [facility] [place] [address]- Care Team Related Persons Name: SHIPMANESManolo Paz Address: Home [address] [place] [phone] Care Team Personnel Name: Wu DOTSON MD Member Role: Primary Care Physician Address: Address: [address] [place] [address]- Name: AMBER DE LA PAZTIRE MANAGER Position: P4 Advanced Core Machine Tender Member Role: Pain Management Address: Address: [address] [facility] [place] [address]- Care Team Related Persons Name: SHIPMANESManolo Paz Address: Home [id number] [place] [phone] [place] Care Team Personnel Name: ANAMARIA ENRIQUEZ MD Position: P4 Physician - Urologist Member Role: Urologist Address: Address: [address] [place] [address] [place] [address]- Name: Wu DOTSON MD Member Role: Primary Care Physician Address: Address: [address] [place] [address]- Name: DE LA PAZ, AMBER COPYRIGHT CLERK-TIRE MANAGER Position: P4 Advanced Core Machine Tender Member Role: Pain Management Address: Address: [address] [facility] [place] [address]- Care Team Related Persons Name: KEN CRENSHAW Address: Home [id number] [place] [phone] [place] Care Team Personnel Name: ANAMARIA ENRIQUEZ MD Position: P4 Physician - Urologist Member Role: Urologist Address: Address: [address] [place], [place] [phone]- Name: Wu DOTSON MD Member Role: Primary Care Physician Address: Address: [address] [place] [address].[place] [address]- Name: AMBER DE LA PAZ Position: P4 Advanced Core Machine Tender Member Role: Pain Management Address: Address: [address] [facility] [place] [address]- Care Team Related Persons Name: KEN CRENSHAW Address: Home [address] [place] [phone] [place] Care Team Personnel Name: ANAMARIA ENRIQUEZ MD Position: P4 Physician - Urologist Member Role: Urologist Address: Address: [address] [place], [place] [phone]- Name: Wu DOTSON MD Position: No Access Member Role: Primary Care Physician Address: Address: [address] [place] [address] [place] [address]- Name: AMBER DE LA PAZTIRE MANAGER Position: [facility] Advanced Practice Nurse Member Role: Pain Management Address: Address: [address] [place] [address]- Care Team Related Persons Name: KEN CRENSHAW Address: Home [address] [place] [phone] [place] Care Team Personnel Name: ANAMARIA ENRIQUEZ MD Position: P4 Physician - Urologist Member Role: Urologist Address: Address: [address] [place] [address]- Name: Wu DOTSON MD Position: No Access Member Role: Primary Care Physician Address: Address: [address] [place] [address] [address] [id number]- Name: AMBER DE LA PAZ Position: Hospitalist Advanced Practice Nurse Member Role: Pain Management Address: Address: [address] [place] [address], [place] [address]- Care Team Related Persons Name: OUSMANE CRENSHAWA Brandi Address: Home [address] [place], [place] [phone] Care Team (unrecognized sect ion and content) Care Team Personnel Name: Wu DOTSON MD Position: P3 Physician - Endocrinology Med Service: Active Provider Member Role: Primary Care Physician Address: Address: [facility] [place] [address]- [place] Name: AMBER DE LA PAZ Position: P4 Advanced Practice Nurse Med Service: Active Provider Member Role: Pain Management Address: Address: [address] [facility] [place] [address]- Care Team Related Persons Name: SHIPMANBECKIE Paz Address: Home [id number] [place] [phone] Care Team Personnel Name: Wu DOTSON MD Position: P3 Physician - Endocrinology Med Service: Active Provider Member Role: Primary Care Physician Address: Address: [facility] [place] [address]- Name: AMBER DE LA PAZ Position: P4 Advanced Practice Nurse Med Service: Active Provider Member Role: Pain Management Address: Address: [address] [facility] [place] [address]- [place] Care Team Related Persons Name: OUSMANE CRENSHAWManolo Paz Address: Home [address] [place], [place] [phone] [place] Care Team Personnel Name: Wu DOTSON MD Position: P3 Physician - Endocrinology Med Service: Active Provider Member Role: Primary Care Physician Address: Address: [facility] [place] [address]- Name: AMBER DE LA PAZ Position: P4 Advanced Practice Nurse Med Service: Active Provider Member Role: Pain Management Address: Address: [address] [facility] [place] [address]- [place] Care Team Related Persons Name: KEN CRENSHAW Address: Home [address] [place], [place] [phone] Care Team Personnel Name: Wu DOTSON MD Position: P3 Physician - Endocrinology Member Role: Primary Care Physician Address: Address: [address] [place] [address] [address] [place], [place] [address] Name: AMBER DE LA PAZ Position: P4 Advanced Practice Nurse Member Role: Pain Management Address: Address: [address] [place] [address] [place], [place] [address] Care Team Related Persons Name: KEN CRENSHAW Address: Home [address] [place] [phone] Care Team Personnel Name: Wu DOTSON MD Position: P3 Physician - Endocrinology Member Role: Primary Care Physician Address: Address: [address] [place] [address] Name: AMBER DE LA PAZ Position: P4 Advanced Practice Nurse Member Role: Pain Management Address: Address: [address] [place] [address] [place], [place] [address] Care Team Related Persons Name: KEN CRENSHAW Address: [address] [phone] (unrecognized sect ion and content) No Status [...] BE BASED ON THE PRIMARY CLINICAL RECORDS. [employer] provides no warranty or guarantee of the accuracy or completeness of information in this document.
[2023-12-13 12:37] LABS: Absolute Lymphocyte Count 0.77 X10^3/uL (0.83-4.51); Absolute Neutrophil Count 3.5 X10^3/uL (2.0-7.7); Basophil# 0.03 X10^3/uL; Basophil% 0.6 % (0-1); Eosinophil# 0.09 X10^3/uL; Eosinophils% 1.9 % (0-5); Hematocrit 42.9 % (40-54); Hemoglobin 13.8 g/dL (13.0-16.5); Lymphocyte # 0.77 X10^3/ul (0.83-4.51); Lymphocyte % 16.3 % (19-41); Mean Corp Hgb Conc 32.2 g/dL (32-36); Mean Corpuscular Hgb 30.7 pg (27.0-32.0); Mean Corpuscular Volume 95.5 fL (80-94); Mean Platelet Vol. 10.3 fl (6.2-12.0); Monocyte# 0.31 X10^3/uL; Monocyte% 6.6 % (0-10); NRBC Flagged by Analyzer 0 % (0-5); Neutrophil # 3.48 X10^3/uL (2.7-7.7); Platelet Count 188 K/mm3 (150-450); RBC Distribution Width CV 14.3 % (11.6-14.6); Red Blood Count 4.49 M/mm3 (4.6-6.2); White Blood Count 4.7 K/mm3 (4.4-11.0)
[2023-12-13 13:17] LABS: ALB/GLOB Ratio 0.9 RATIO (0.9-2.4); AST(SGOT) 31 U/L (15-37); Alanine Aminotransfer ALT/SGPT 29 U/L (16-61); Albumin, Serum 3.6 g/dL (3.2-5.0); Alkaline Phosphatase 82 U/L (45-117); Anion Gap 2 (5-15); BUN 22 mg/dL (7-18); BUN/Creat Ratio 30.1 RATIO (10-20); Calcium,Total 9.9 mg/dL (8.5-10.1); Chloride 109 mmol/L (98-107); Creatinine, Serum 0.73 mg/dL (0.70-1.30); EST Glomerular Filtration Rate 112 mL/min (>60); Est Glom Filt Rate - Afr Amer 136 mL/min (>60); Globulin 4.1 g/dL (2.2-4.2); Glucose 79 mg/dL (74-106); Potassium 4.4 mmol/L (3.5-5.1); Protein, Total 7.7 g/dL (6.4-8.2); Sodium Level 140 mmol/L (136-145)
== END | disposition home or self-care (01) ==
LOC: MTLAB 10:54
PROVIDERS: Referring Provider Internal Medicine Rheumatology; Visit Provider Internal Medicine Rheumatology
DX: M06.4 Inflammatory polyarthropathy (principal); Z79.899 Other long term (current) drug therapy
CPT/HCPCS: 36415; 80053; 85025

== ENCOUNTER → 2024-01-20 | Outpatient (CLI) | payer MEDICARE, SELFPAY ==
[2024-01-20 11:05] LABS: ALB/GLOB Ratio 0.8 RATIO (0.9-2.4); AST(SGOT) 26 U/L (15-37); Alanine Aminotransfer ALT/SGPT 29 U/L (16-61); Albumin, Serum 3.5 g/dL (3.2-5.0); Alkaline Phosphatase 73 U/L (45-117); Anion Gap 5 (5-15); BUN 20 mg/dL (7-18); Calcium,Total 9.3 mg/dL (8.5-10.1); Chloride 103 mmol/L (98-107); Cholesterol 204 mg/dL (200); EST Glomerular Filtration Rate 101 mL/min (>60); Est Glom Filt Rate - Afr Amer 123 mL/min (>60); Globulin 4.3 g/dL (2.2-4.2); Glucose 97 mg/dL (74-106); High Density Lipoprotein 40 mg/dL; Potassium 3.8 mmol/L (3.5-5.1); Protein, Total 7.8 g/dL (6.4-8.2); Sodium Level 136 mmol/L (136-145); Thyroid Stim Hormone (TSH) 1.44 uIU/mL (0.358-3.74); Triglycerides 94 mg/dL; Very Low Density Lipoprotein 19 mg/dL (5-40)
== END | disposition home or self-care (01) ==
LOC: MTLAB 07:09
PROVIDERS: Referring Provider Internal Medicine Endocrinology, Diabetes & Metabolism; Visit Provider Internal Medicine Endocrinology, Diabetes & Metabolism
DX: E03.8 Other specified hypothyroidism (principal); E78.2 Mixed hyperlipidemia
CPT/HCPCS: 36415; 80053; 80061; 84443

== ENCOUNTER → 2024-03-06 | Outpatient (CLI) | payer MEDICARE, SELFPAY ==
[2024-03-06 15:33] LABS: Absolute Lymphocyte Count 0.66 X10^3/uL (0.83-4.51); Absolute Neutrophil Count 3.6 X10^3/uL (2.0-7.7); Basophil# 0.02 X10^3/uL; Basophil% 0.4 % (0-1); Eosinophil# 0.03 X10^3/uL; Eosinophils% 0.6 % (0-5); Hematocrit 42.1 % (40-54); Hemoglobin 13.7 g/dL (13.0-16.5); Lymphocyte # 0.66 X10^3/ul (0.83-4.51); Lymphocyte % 14.3 % (19-41); Mean Corp Hgb Conc 32.5 g/dL (32-36); Mean Corpuscular Hgb 31.3 pg (27.0-32.0); Mean Corpuscular Volume 96.1 fL (80-94); Monocyte# 0.26 X10^3/uL; Monocyte% 5.6 % (0-10); NRBC Flagged by Analyzer 0 % (0-5); Neutrophil # 3.63 X10^3/uL (2.7-7.7); Neutrophil % 78.7 % (47-70); Platelet Count 178 K/mm3 (150-450); RBC Distribution Width CV 13.9 % (11.6-14.6); RBC Distribution Width SD 48.8 fl (35.1-43.9); Red Blood Count 4.38 M/mm3 (4.6-6.2); White Blood Count 4.6 K/mm3 (4.4-11.0)
[2024-03-06 15:47] LABS: ALB/GLOB Ratio 0.8 RATIO (0.9-2.4); AST(SGOT) 27 U/L (15-37); Alanine Aminotransfer ALT/SGPT 29 U/L (16-61); Albumin, Serum 3.5 g/dL (3.2-5.0); Alkaline Phosphatase 78 U/L (45-117); Anion Gap 5 (5-15); BUN 25 mg/dL (7-18); BUN/Creat Ratio 30.3 RATIO (10-20); Calcium,Total 9.5 mg/dL (8.5-10.1); Chloride 107 mmol/L (98-107); Creatinine, Serum 0.82 mg/dL (0.70-1.30); EST Glomerular Filtration Rate 98 mL/min (>60); Est Glom Filt Rate - Afr Amer 118 mL/min (>60); Globulin 4.2 g/dL (2.2-4.2); Glucose 90 mg/dL (74-106); Potassium 4.1 mmol/L (3.5-5.1); Protein, Total 7.7 g/dL (6.4-8.2); Sodium Level 138 mmol/L (136-145)
== END | disposition home or self-care (01) ==
LOC: MTLAB 13:10
PROVIDERS: Referring Provider Internal Medicine Rheumatology; Visit Provider Internal Medicine Rheumatology
DX: E03.8 Other specified hypothyroidism (principal); M06.4 Inflammatory polyarthropathy; R77.1 Abnormality of globulin; Z79.899 Other long term (current) drug therapy
CPT/HCPCS: 36415; 80053; 85025

== ENCOUNTER → 2024-05-29 | Outpatient (CLI) | payer MEDICARE, SELFPAY ==
[2024-05-29 10:39] LABS: Absolute Lymphocyte Count 0.97 X10^3/uL (0.83-4.51); Absolute Neutrophil Count 3.4 X10^3/uL (2.0-7.7); Basophil# 0.02 X10^3/uL; Basophil% 0.4 % (0-1); Eosinophil# 0.12 X10^3/uL; Eosinophils% 2.4 % (0-5); Hematocrit 43.5 % (40-54); Hemoglobin 14.2 g/dL (13.0-16.5); Lymphocyte # 0.97 X10^3/ul (0.83-4.51); Lymphocyte % 19.7 % (19-41); Mean Corp Hgb Conc 32.6 g/dL (32-36); Mean Corpuscular Hgb 31.6 pg (27.0-32.0); Mean Corpuscular Volume 96.7 fL (80-94); Mean Platelet Vol. 10.7 fl (6.2-12.0); Monocyte# 0.42 X10^3/uL; Monocyte% 8.5 % (0-10); NRBC Flagged by Analyzer 0 % (0-5); Neutrophil # 3.37 X10^3/uL (2.7-7.7); Neutrophil % 68.6 % (47-70); Platelet Count 168 K/mm3 (150-450); RBC Distribution Width CV 14.1 % (11.6-14.6); RBC Distribution Width SD 49.7 fl (35.1-43.9); White Blood Count 4.9 K/mm3 (4.4-11.0)
[2024-05-29 11:15] LABS: ALB/GLOB Ratio 0.8 RATIO (0.9-2.4); AST(SGOT) 25 U/L (15-37); Alanine Aminotransfer ALT/SGPT 25 U/L (16-61); Albumin, Serum 3.4 g/dL (3.2-5.0); Alkaline Phosphatase 85 U/L (45-117); Anion Gap 5 (5-15); BUN 18 mg/dL (7-18); BUN/Creat Ratio 24.6 RATIO (10-20); Calcium,Total 9.7 mg/dL (8.5-10.1); Chloride 106 mmol/L (98-107); Creatinine, Serum 0.73 mg/dL (0.70-1.30); EST Glomerular Filtration Rate 112 mL/min (>60); Est Glom Filt Rate - Afr Amer 135 mL/min (>60); Globulin 4.3 g/dL (2.2-4.2); Glucose 109 mg/dL (74-106); Potassium 3.8 mmol/L (3.5-5.1); Protein, Total 7.7 g/dL (6.4-8.2); Sodium Level 139 mmol/L (136-145)
== END | disposition home or self-care (01) ==
LOC: MTLAB 07:28
PROVIDERS: Referring Provider Internal Medicine Rheumatology; Visit Provider Internal Medicine Rheumatology
DX: M06.4 Inflammatory polyarthropathy (principal); Z79.899 Other long term (current) drug therapy
CPT/HCPCS: 36415; 80053; 85025

== ENCOUNTER → 2024-07-09 | Outpatient (CLI) | payer MEDICARE, SELFPAY ==
[2024-07-09 12:52] LABS: PSA,Total - Annual Screen 0.35 ng/mL (0.00-4.00)
== END | disposition home or self-care (01) ==
PROVIDERS: Referring Provider Specialist; Visit Provider Specialist
DX: C61 Malignant neoplasm of prostate (principal); Z90.79 Acquired absence of other genital organ(s); N32.0 Bladder-neck obstruction; N45.1 Epididymitis; N52.9 Male erectile dysfunction, unspecified; Z12.5 Encounter for screening for malignant neoplasm of prostate
CPT/HCPCS: 36415; 84153; G0103

== ENCOUNTER → 2024-08-23 | Outpatient (CLI) | payer MEDICARE, SELFPAY ==
[2024-08-23 15:38] LABS: Absolute Lymphocyte Count 1.09 X10^3/uL (0.83-4.51); Absolute Neutrophil Count 4.3 X10^3/uL (2.0-7.7); Basophil# 0.04 X10^3/uL; Basophil% 0.7 % (0-1); Eosinophils% 1.7 % (0-5); Hematocrit 42.6 % (40-54); Lymphocyte # 1.09 X10^3/ul (0.83-4.51); Lymphocyte % 18.2 % (19-41); Mean Corp Hgb Conc 32.9 g/dL (32-36); Mean Corpuscular Hgb 31.7 pg (27.0-32.0); Mean Corpuscular Volume 96.6 fL (80-94); Monocyte# 0.46 X10^3/uL; Monocyte% 7.7 % (0-10); NRBC Flagged by Analyzer 0 % (0-5); Neutrophil # 4.28 X10^3/uL (2.7-7.7); Neutrophil % 71.4 % (47-70); Platelet Count 179 K/mm3 (150-450); RBC Distribution Width CV 13.9 % (11.6-14.6); RBC Distribution Width SD 49.2 fl (35.1-43.9); Red Blood Count 4.41 M/mm3 (4.6-6.2)
[2024-08-23 15:51] LABS: ALB/GLOB Ratio 0.8 RATIO (0.9-2.4); AST(SGOT) 27 U/L (15-37); Alanine Aminotransfer ALT/SGPT 32 U/L (16-61); Albumin, Serum 3.4 g/dL (3.2-5.0); Alkaline Phosphatase 83 U/L (45-117); Anion Gap 2 (5-15); BUN 26 mg/dL (7-18); BUN/Creat Ratio 34.9 RATIO (10-20); Calcium,Total 9.5 mg/dL (8.5-10.1); Chloride 107 mmol/L (98-107); Creatinine, Serum 0.74 mg/dL (0.70-1.30); EST Glomerular Filtration Rate 110 mL/min (>60); Est Glom Filt Rate - Afr Amer 133 mL/min (>60); Globulin 4.1 g/dL (2.2-4.2); Glucose 96 mg/dL (74-106); Potassium 4.3 mmol/L (3.5-5.1); Protein, Total 7.5 g/dL (6.4-8.2); Sodium Level 141 mmol/L (136-145)
== END | disposition home or self-care (01) ==
PROVIDERS: Referring Provider Internal Medicine Rheumatology; Visit Provider Internal Medicine Rheumatology
DX: M06.4 Inflammatory polyarthropathy (principal); M35.00 Sjogren syndrome, unspecified; Z79.899 Other long term (current) drug therapy
CPT/HCPCS: 36415; 80053; 85025

== ENCOUNTER → 2024-10-05 | Outpatient (CLI) | payer MEDICARE, SELFPAY ==
[2024-10-05 11:10] LABS: ALB/GLOB Ratio 0.9 RATIO (0.9-2.4); AST(SGOT) 35 U/L (15-37); Alanine Aminotransfer ALT/SGPT 40 U/L (16-61); Albumin, Serum 3.7 g/dL (3.2-5.0); Alkaline Phosphatase 82 U/L (45-117); Anion Gap 1 (5-15); BUN 16 mg/dL (7-18); BUN/Creat Ratio 24.2 RATIO (10-20); Calcium,Total 9.5 mg/dL (8.5-10.1); Chloride 103 mmol/L (98-107); Cholesterol 216 mg/dL (200); Creatinine, Serum 0.66 mg/dL (0.70-1.30); EST Glomerular Filtration Rate 126 mL/min (>60); Est Glom Filt Rate - Afr Amer 152 mL/min (>60); Globulin 4.3 g/dL (2.2-4.2); Glucose 102 mg/dL (74-106); High Density Lipoprotein 44 mg/dL; Potassium 3.8 mmol/L (3.5-5.1); Sodium Level 135 mmol/L (136-145); Triglycerides 161 mg/dL; Very Low Density Lipoprotein 32 mg/dL (5-40)
== END | disposition home or self-care (01) ==
LOC: MTLAB 07:12
DX: E78.5 Hyperlipidemia, unspecified (principal)
CPT/HCPCS: 36415; 80053; 80061

== ENCOUNTER → 2024-10-25 | Outpatient (CLI) | payer MEDICARE, SELFPAY ==
[2024-10-25 10:51] LABS: Vitamin D,25 Hydroxy 63.6 ng/mL
[2024-10-25 10:55] LABS: ALB/GLOB Ratio 0.8 RATIO (0.9-2.4); AST(SGOT) 26 U/L (15-37); Alanine Aminotransfer ALT/SGPT 27 U/L (16-61); Albumin, Serum 3.6 g/dL (3.2-5.0); Alkaline Phosphatase 86 U/L (45-117); Anion Gap 4 (5-15); BUN 14 mg/dL (7-18); BUN/Creat Ratio 18.7 RATIO (10-20); Calcium,Total 9.5 mg/dL (8.5-10.1); Chloride 102 mmol/L (98-107); Cholesterol 197 mg/dL (200); Creatinine, Serum 0.75 mg/dL (0.70-1.30); EST Glomerular Filtration Rate 109 mL/min (>60); Est Glom Filt Rate - Afr Amer 132 mL/min (>60); Globulin 4.5 g/dL (2.2-4.2); Glucose 96 mg/dL (74-106); High Density Lipoprotein 38 mg/dL; Potassium 3.7 mmol/L (3.5-5.1); Protein, Total 8.1 g/dL (6.4-8.2); Sodium Level 136 mmol/L (136-145); Triglycerides 131 mg/dL; Very Low Density Lipoprotein 26 mg/dL (5-40)
== END | disposition home or self-care (01) ==
PROVIDERS: Referring Provider Internal Medicine Endocrinology, Diabetes & Metabolism; Visit Provider Internal Medicine Endocrinology, Diabetes & Metabolism
DX: E03.8 Other specified hypothyroidism (principal); E78.2 Mixed hyperlipidemia; E55.9 Vitamin D deficiency, unspecified

== ENCOUNTER → 2024-11-19 | Outpatient (CLI) | payer MEDICARE, SELFPAY ==
[2024-11-19 18:54] LABS: Absolute Neutrophil Count 4.1 X10^3/uL (2.0-7.7); Basophil# 0.02 X10^3/uL; Basophil% 0.4 % (0-1); Eosinophil# 0.07 X10^3/uL; Eosinophils% 1.3 % (0-5); Hemoglobin 14.3 g/dL (13.0-16.5); Lymphocyte % 16.2 % (19-41); Mean Corp Hgb Conc 32.5 g/dL (32-36); Mean Corpuscular Hgb 31.3 pg (27.0-32.0); Mean Corpuscular Volume 96.3 fL (80-94); Mean Platelet Vol. 10.8 fl (6.2-12.0); Monocyte% 7.2 % (0-10); NRBC Flagged by Analyzer 0 % (0-5); Neutrophil # 4.14 X10^3/uL (2.7-7.7); Neutrophil % 74.2 % (47-70); Platelet Count 199 K/mm3 (150-450); RBC Distribution Width CV 14.1 % (11.6-14.6); RBC Distribution Width SD 49.6 fl (35.1-43.9); Red Blood Count 4.57 M/mm3 (4.6-6.2); White Blood Count 5.6 K/mm3 (4.4-11.0)
[2024-11-19 20:05] LABS: ALB/GLOB Ratio 0.8 RATIO (0.9-2.4); AST(SGOT) 24 U/L (15-37); Alanine Aminotransfer ALT/SGPT 27 U/L (16-61); Albumin, Serum 3.6 g/dL (3.2-5.0); Alkaline Phosphatase 82 U/L (45-117); Anion Gap 5 (5-15); BUN 22 mg/dL (7-18); BUN/Creat Ratio 29.5 RATIO (10-20); Calcium,Total 10.1 mg/dL (8.5-10.1); Chloride 104 mmol/L (98-107); Creatinine, Serum 0.75 mg/dL (0.70-1.30); EST Glomerular Filtration Rate 109 mL/min (>60); Est Glom Filt Rate - Afr Amer 132 mL/min (>60); Globulin 4.4 g/dL (2.2-4.2); Glucose 92 mg/dL (74-106); Potassium 4.3 mmol/L (3.5-5.1); Sodium Level 140 mmol/L (136-145)
== END | disposition home or self-care (01) ==
LOC: MTLAB 13:53
PROVIDERS: Referring Provider Internal Medicine Rheumatology; Visit Provider Internal Medicine Rheumatology
DX: M06.4 Inflammatory polyarthropathy (principal); M35.00 Sjogren syndrome, unspecified; Z79.899 Other long term (current) drug therapy
CPT/HCPCS: 36415; 80053; 85025

== ENCOUNTER → 2025-02-07 | Outpatient (CLI) | payer MEDICARE, SELFPAY ==
[2025-02-07 12:21] LABS: Absolute Lymphocyte Count 0.66 X10^3/uL (0.83-4.51); Absolute Neutrophil Count 3.4 X10^3/uL (2.0-7.7); Basophil# 0.02 X10^3/uL; Basophil% 0.4 % (0-1); Eosinophil# 0.07 X10^3/uL; Eosinophils% 1.6 % (0-5); Hematocrit 42.7 % (40-54); Lymphocyte # 0.66 X10^3/ul (0.83-4.51); Lymphocyte % 14.6 % (19-41); Mean Corp Hgb Conc 32.8 g/dL (32-36); Mean Corpuscular Hgb 31.5 pg (27.0-32.0); Mean Platelet Vol. 10.4 fl (6.2-12.0); Monocyte# 0.37 X10^3/uL; Monocyte% 8.2 % (0-10); NRBC Flagged by Analyzer 0 % (0-5); Neutrophil # 3.37 X10^3/uL (2.7-7.7); Neutrophil % 74.8 % (47-70); Platelet Count 187 K/mm3 (150-450); RBC Distribution Width CV 13.8 % (11.6-14.6); RBC Distribution Width SD 48.9 fl (35.1-43.9); Red Blood Count 4.45 M/mm3 (4.6-6.2); White Blood Count 4.5 K/mm3 (4.4-11.0)
[2025-02-07 13:23] LABS: ALB/GLOB Ratio 1.1 RATIO (0.9-2.4); AST(SGOT) 33 U/L (<=37); Alanine Aminotransfer ALT/SGPT 24 U/L (<=46); Alkaline Phosphatase 83 U/L (40-129); Anion Gap 8 (5-15); BUN 17 mg/dL (4-19); BUN/Creat Ratio 22.2 RATIO (10-20); Calcium,Total 9.9 mg/dL (7.6-11.0); Carbon Dioxide 27.1 mmol/L (21.0-32.0); Chloride 104 mmol/L (98-108); Creatinine, Serum 0.74 mg/dL (0.70-1.20); EST Glomerular Filtration Rate 96 (>60); Globulin 3.7 g/dL (2.2-4.2); Glucose 108 mg/dL (70-99); Potassium 4.8 mmol/L (3.3-5.1); Protein, Total 7.7 g/dL (5.9-8.4); Sodium Level 139 mmol/L (133-145); Total Bilirubin 0.51 mg/dL (0.00-1.30)
== END | disposition home or self-care (01) ==
LOC: MTLAB 10:17
PROVIDERS: Referring Provider Internal Medicine Rheumatology; Visit Provider Internal Medicine Rheumatology
DX: M06.4 Inflammatory polyarthropathy (principal); M35.00 Sjogren syndrome, unspecified; Z79.899 Other long term (current) drug therapy
CPT/HCPCS: 36415; 80053; 85025

== ENCOUNTER → 2025-05-07 | Outpatient (CLI) | payer MEDICARE, SELFPAY ==
[2025-05-07 14:24] LABS: Hematocrit 43.3 % (40-54); Hemoglobin 13.9 g/dL (13.0-16.5); Immature Granulocytes Count 0.020 X10^3/uL (0.0-0.0); Mean Corp Hgb Conc 32.1 g/dL (32-36); Mean Corpuscular Volume 96.4 fL (80-94); Mean Platelet Vol. 11.1 fl (6.2-12.0); NRBC Flagged by Analyzer 0 % (0-5); Platelet Count 183 K/mm3 (150-450); RBC Distribution Width CV 14.2 % (11.6-14.6); RBC Distribution Width SD 50.3 fl (35.1-43.9); Red Blood Count 4.49 M/mm3 (4.6-6.2); White Blood Count 4.2 K/mm3 (4.4-11.0)
[2025-05-07 14:32] LABS: AST(SGOT) 30 U/L (<=37); Alanine Aminotransfer ALT/SGPT 21 U/L (<=46); Albumin, Serum 4.2 g/dL (3.4-4.8); Alkaline Phosphatase 83 U/L (40-129); Anion Gap 9 (5-15); BUN 20 mg/dL (4-19); BUN/Creat Ratio 28.8 RATIO (10-20); Calcium,Total 10.0 mg/dL (7.6-11.0); Carbon Dioxide 26.7 mmol/L (21.0-32.0); Chloride 106 mmol/L (98-108); Globulin 3.7 g/dL (2.2-4.2); Glucose 89 mg/dL (70-99); Potassium 4.6 mmol/L (3.3-5.1)
== END | disposition home or self-care (01) ==
LOC: MTLAB 10:33
PROVIDERS: Referring Provider Internal Medicine Rheumatology; Visit Provider Internal Medicine Rheumatology
DX: M06.4 Inflammatory polyarthropathy (principal); M35.00 Sjogren syndrome, unspecified; Z79.899 Other long term (current) drug therapy
CPT/HCPCS: 36415; 80053; 85025

== ENCOUNTER → 2025-07-10 | Outpatient (CLI) | payer MEDICARE, SELFPAY ==
[2025-07-10 18:30] LABS: PSA,Total - Annual Screen 0.31 ng/mL (0.02-4.00)
== END | disposition home or self-care (01) ==
LOC: MTLAB 15:23
PROVIDERS: Referring Provider Specialist; Visit Provider Specialist
DX: C61 Malignant neoplasm of prostate (principal)
CPT/HCPCS: 36415; 84153; G0103

== ENCOUNTER → 2025-08-14 | Outpatient (CLI) | payer MEDICARE, SELFPAY ==
[2025-08-14 12:35] LABS: Hematocrit 43.6 % (40-54); Hemoglobin 14.1 g/dL (13.0-16.5); Immature Granulocytes Count 0.020 X10^3/uL (0.0-0.0); Mean Corp Hgb Conc 32.3 g/dL (32-36); Mean Corpuscular Volume 97.5 fL (80-94); Mean Platelet Vol. 11.2 fl (6.2-12.0); NRBC Flagged by Analyzer 0 % (0-5); Platelet Count 184 K/mm3 (150-450); RBC Distribution Width CV 14.0 % (11.6-14.6); RBC Distribution Width SD 50.3 fl (35.1-43.9); Red Blood Count 4.47 M/mm3 (4.6-6.2); White Blood Count 4.6 K/mm3 (4.4-11.0)
[2025-08-14 12:54] LABS: AST(SGOT) 33 U/L (<=37); Alanine Aminotransfer ALT/SGPT 25 U/L (<=46); Albumin, Serum 4.0 g/dL (3.4-4.8); Alkaline Phosphatase 75 U/L (40-129); Anion Gap 10 (5-15); BUN 20 mg/dL (4-19); BUN/Creat Ratio 27.8 RATIO (10-20); Calcium,Total 9.6 mg/dL (7.6-11.0); Carbon Dioxide 25.5 mmol/L (21.0-32.0); Chloride 106 mmol/L (98-108); Globulin 3.4 g/dL (2.2-4.2); Glucose 95 mg/dL (70-99); Potassium 4.7 mmol/L (3.3-5.1)
== END | disposition home or self-care (01) ==
LOC: MTLAB 10:01
PROVIDERS: Referring Provider Internal Medicine Rheumatology; Visit Provider Internal Medicine Rheumatology
DX: M06.4 Inflammatory polyarthropathy (principal); Z79.899 Other long term (current) drug therapy
CPT/HCPCS: 36415; 80053; 85025

== ENCOUNTER → 2025-10-09 | Outpatient (CLI) | payer MEDICARE, SELFPAY ==
[2025-10-09 10:16] LABS: Hematocrit 43.6 % (40-54); Hemoglobin 14.0 g/dL (13.0-16.5); Immature Granulocytes Count 0.040 X10^3/uL (0.0-0.0); Mean Corp Hgb Conc 32.1 g/dL (32-36); Mean Corpuscular Volume 95.2 fL (80-94); Mean Platelet Vol. 10.5 fl (6.2-12.0); NRBC Flagged by Analyzer 0 % (0-5); Platelet Count 176 K/mm3 (150-450); RBC Distribution Width CV 14.1 % (11.6-14.6); RBC Distribution Width SD 49.0 fl (35.1-43.9); Red Blood Count 4.58 M/mm3 (4.6-6.2); White Blood Count 5.3 K/mm3 (4.4-11.0)
[2025-10-09 10:43] LABS: AST(SGOT) 33 U/L (<=37); Alanine Aminotransfer ALT/SGPT 21 U/L (<=46); Albumin, Serum 4.1 g/dL (3.4-4.8); Alkaline Phosphatase 82 U/L (40-129); Anion Gap 9 (7-18); BUN 19 mg/dL (4-19); BUN/Creat Ratio 23.2 RATIO (10-20); Calcium,Total 10.1 mg/dL (7.6-11.0); Carbon Dioxide 25.8 mmol/L (20.0-29.0); Chloride 103 mmol/L (96-106); Globulin 3.9 g/dL (2.2-4.2); Glucose 96 mg/dL (70-99); Potassium 4.4 mmol/L (3.5-5.1)
== END | disposition home or self-care (01) ==
LOC: MTLAB 09:21
PROVIDERS: Referring Provider Internal Medicine Rheumatology; Visit Provider Internal Medicine Rheumatology
DX: M06.4 Inflammatory polyarthropathy (principal); Z79.899 Other long term (current) drug therapy
CPT/HCPCS: 36415; 80053; 85025